=== PATIENT | male | born 1965 | race Caucasian/White ===

== ENCOUNTER 2017-08-19 05:42 | Inpatient (IN) | payer SELFPAY ==
[~2017-08-19] VITALS: Ht 177.8 cm; Wt 165.0 kg
[~2017-08-19 05:42] MED LIST: AMOX1TAB43 PO; ATOR-24 PO; LISI-725 PO; METF-384 PO; WARF5TAB7 PO; [UNRECOGNIZED DRUG - OTHER]
--- NOTE | 2017-08-19 06:09 | EMERGENCY ROOM VISIT NOTE ---
History First contact with patient: 05:44 Chief Complaint: FLU LIKE SX Stated Complaint: FLU LIKE SYMPTOMS History of Present Illness The patient is a 52 year old male who presents to the Emergency Room with complaints of flulike symptoms. The patient reports he has had fever, body aches, chills and sweats. His symptoms began one week ago that seemed to improve. He states that the symptoms returned last night. He has had a persistent cough and does report some tightness in his chest when walking outside in the cold. He reports that he feels fatigued. He denies any history of asthma or COPD. He denies any neck pain/stiffness, headache, nausea/ vomiting or diarrhea. Review of Systems A complete 10 point review of systems was reviewed with the patient with pertinent positives and negatives as per history of present illness. All else were negative. Past Medical/Surgical History Medical Problems: (1) Body Mass Index 50.0-59.9, Adult (2) Cellulitis of right lower extremity (3) Current use of intermediate teacher anticoagulation (4) DM type 2 (diabetes mellitus, type 2) (5) H/O deep venous thrombosis (6) Hx pulmonary embolism Family History Heart disease Social History Smoking Status: Never Smoker Alcohol Use: none Drug Use: none Marital Status: single Housing Status: lives with family Occupation Status: employed Current/Historical Medications Scheduled Atorvastatin (Lipitor), 40 MG PO DAILY Lisinopril (Zestril), 20 MG PO DAILY Metformin Hcl (Glucophage), 1,000 MG PO BID Warfarin Sod (Jantoven), 7.5 MG PO DAILY Physical Exam Vital Signs Date Time Temp Pulse Resp B/P (MAP) Pulse Ox O2 Delivery O2 Flow Rate FiO2 08/19/17 06:50 92 18 136/71 92 Room Air 08/19/17 05:44 37.2 102 22 134/66 96 Room Air Physical Exam VITALS: Vitals are noted on the nurse's note and reviewed by myself. Vital signs stable. GENERAL: This is a 52-year-old obese male in no acute distress. SKIN: The skin was without rashes. EARS: External auditory canals clear, tympanic membranes pearly you without erythema or effusion bilaterally. EYES: Pupils equal round and reactive to light and accommodation. MOUTH: Mucous membranes moist. Tonsils are not enlarged. Pharynx without erythema or exudate. NECK: Supple without nuchal rigidity. HEART: Regular rate and rhythm without murmurs gallops or rubs. LUNGS: Clear to auscultation bilaterally without wheezes, rales or rhonchi. No retractions or accessory muscle use. NEURO: Patient was alert and oriented to person place and time. Medical Decision & Procedures ER Provider Diagnostic Interpretation: CHEST ONE VIEW PORTABLE CLINICAL HISTORY: cough dyspnea COMPARISON STUDY: 01/15/2016 FINDINGS: Mild stable cardiomegaly. Lungs are clear. Diaphragms are smooth. IMPRESSION: Mild stable cardia megaly. Otherwise negative study. Laboratory Results 08/19/17 06:00 Red Blood Count 4.41, Mean Corpuscular Volume 87.3, Mean Corpuscular Hemoglobin 29.3, Mean Corpuscular Hemoglobin Concent 33.5, Mean Platelet Volume 9.3, Neutrophils (%) (Auto) 85.8, Lymphocytes (%) (Auto) 6.0, Monocytes (%) (Auto) 7.3, Eosinophils (%) (Auto) 0.0, Basophils (%) (Auto) 0.1, Neutrophils # (Auto) 15.38, Lymphocytes # (Auto) 1.07, Monocytes # (Auto) 1.31, Eosinophils # (Auto) 0.00, Basophils # (Auto) 0.02 08/19/17 06:00 Test 08/19/17 05:45 08/19/17 06:00 Influenza Type A Antigen Neg for Influ A (NEG) Influenza Type B Antigen Neg for Influ B (NEG) White Blood Count 17.93 K/uL (4.8-10.8) Red Blood Count 4.41 M/uL (4.7-6.1) Hemoglobin 12.9 g/dL (14.0-18.0) Hematocrit 38.5 % (42-52) Mean Corpuscular Volume 87.3 fL (80-100) Mean Corpuscular Hemoglobin 29.3 pg (25-34) Mean Corpuscular Hemoglobin Concent 33.5 g/dl (32-36) Platelet Count 159 K/uL (130-400) Mean Platelet Volume 9.3 fL (7.4-10.4) Neutrophils (%) (Auto) 85.8 % Lymphocytes (%) (Auto) 6.0 % Monocytes (%) (Auto) 7.3 % Eosinophils (%) (Auto) 0.0 % Basophils (%) (Auto) 0.1 % Neutrophils # (Auto) 15.38 K/uL (1.4-6.5) Lymphocytes # (Auto) 1.07 K/uL (1.2-3.4) Monocytes # (Auto) 1.31 K/uL (0.11-0.59) Eosinophils # (Auto) 0.00 K/uL (0-0.5) Basophils # (Auto) 0.02 K/uL (0-0.2) RDW Standard Deviation 50.2 fL (36.4-46.3) RDW Coefficient of Variation 15.7 % (11.5-14.5) Immature Granulocyte % (Auto) 0.8 % Immature Granulocyte # (Auto) 0.15 K/uL (0.00-0.02) Anion Gap 10.0 mmol/L (3-11) Est Creatinine Clear Calc Drug Dose 121.7 ml/min Estimated GFR () 88.6 Estimated GFR (Non- 76.5 BUN/Creatinine Ratio 11.5 (10-20) Calcium Level 9.2 mg/dl (8.5-10.1) Medications Administered Medications (Trade) Dose Ordered Sig/Deshawn Route Start Time Stop Time Status Last Admin Dose Admin Sodium Chloride 1,000 ml @ 999 mls/hr Q1H1M STAT IV 08/19/17 06:47 08/19/17 07:47 08/19/17 06:57 999 MLS/HR Medical Decision Differential diagnosis includes influenza, pneumonia, viral illness, dehydration , sepsis, among others. The patient is a 52-year-old male who presents today complaining of flulike symptoms. Labs revealed leukocytosis of 17,000. Influenza testing was negative. Chest x-ray does not show any obvious infiltrate consistent with a pneumonia. Patient was found to be hyponatremic at 126. He has had some generalized weakness. He was given a 1 L saline bolus and eventually the hospitalist service for further evaluation. The patient's case was reviewed with Dr. Howell, ED attending physician, who agreed with my assessment and treatment plan. Medication Reconcilliation Current Medication List: was personally reviewed by me Blood Pressure Screening Patient's blood pressure: Normal blood pressure Impression Primary Impression: Hyponatremia Additional Impression: Flu-like symptoms Departure Information Referrals Andrew Vela III, M.D. (PCP) Patient Instructions My [facility] Problem Qualifiers
[2017-08-19 06:15] LABS: BASO % 0.1 %; BASO ABS # 0.02 K/uL (0-0.2); HEMATOCRIT 38.5 % (42-52); HEMOGLOBIN 12.9 g/dL (14.0-18.0); IG# 0.15 K/uL (0.00-0.02); LYMPH ABS # 1.07 K/uL (1.2-3.4); MEAN CELL VOLUME 87.3 fL (80-100); MEAN CORPUSCULAR HEMOGLOBIN 29.3 pg (25-34); MEAN CORPUSCULAR HGB CONC 33.5 g/dl (32-36); MEAN PLATELET VOLUME 9.3 fL (7.4-10.4); MONO % 7.3 %; MONO ABS # 1.31 K/uL (0.11-0.59); NEUT % 85.8 %; NEUT ABS # 15.38 K/uL (1.4-6.5); PLATELET COUNT 159 K/uL (130-400); RED CELL DISTRIBUTION WIDTH CV 15.7 % (11.5-14.5); RED CELL DISTRIBUTION WIDTH SD 50.2 fL (36.4-46.3); WHITE BLOOD COUNT 17.93 K/uL (4.8-10.8)
[2017-08-19 06:29] LABS: INFLUENZA B ANTIGEN Neg for Influ B (NEG)
[2017-08-19 06:40] LABS: CALCIUM 9.2 mg/dl (8.5-10.1); CREATININE 1.11 mg/dl (0.60-1.40); POTASSIUM 3.6 mmol/L (3.5-5.1)
[2017-08-19] MEDS ORDERED: SODIUM CHLORIDE 0.9% 1000ML 1,000 ML IV STA (06:47)
--- NOTE | 2017-08-19 07:05 | DIAGNOSTIC IMAGING REPORT ---
CHEST ONE VIEW PORTABLE CLINICAL HISTORY: cough dyspnea COMPARISON STUDY: 01/15/2016 FINDINGS: Mild stable cardiomegaly. Lungs are clear. Diaphragms are smooth. IMPRESSION: Mild stable cardia megaly. Otherwise negative study. The above report was generated using voice recognition software. It may contain grammatical, syntax or spelling errors. Electronically signed by: Raj Thompson M.D. 08/19/2017 7:04 AM Dictated Date/Time: 08/19/2017 7:03 AM
[2017-08-19 07:45] VITALS: O2SAT 92; Ht 177.8 cm; Wt 165.0 kg
[2017-08-19] MEDS ORDERED: NITROGLYCERIN 0.4 MG SL PER TAB CHARGE SL PRN (08:30)
[2017-08-19] MEDS ORDERED: POLYETHYLENE (MIRALAX) 17 GM PACK PO PRN (08:30)
[2017-08-19] MEDS ORDERED: ACETAMINOPHEN 325 MG TAB PO PRN (08:30)
[2017-08-19] MEDS ORDERED: ALUMINUM/MAGNESIUM/SIMETH (MAALOX MAX) 30 ML UDC PO PRN (08:30)
[2017-08-19] MEDS ORDERED: ONDANSETRON INJ 2 MG/ML 2 ML VIAL IV PRN (08:30)
[2017-08-19] MEDS ORDERED: LEVALBUTEROL/IPRATROPIUM NEB INH PRN (08:45)
[2017-08-19] MEDS: LISINOPRIL 20 MG TAB PO SCH (09:00)
--- NOTE | 2017-08-19 09:10 | HISTORY & PHYSICAL EXAMINATION ---
DATE OF ADMISSION: 08/19/2017 CHIEF COMPLAINT: Chest pressure, shortness of breath and flu-like symptoms. HISTORY OF PRESENT ILLNESS: This 52-year-old male with past medical history significant for diabetes, hypertension, morbid obesity, history of DVT and pulmonary embolism, history of cellulitis of right lower extremity presents with flu-like symptoms. The patient says since last couple of days in severe cold he was getting chest pressure. He works in [employer].Yesterday in the night he was walking up hill in the night to go to his bus when he felt chest pressure and somewhat short of breath. It lasted for some time while he was in the bus and when he went home he felt dizzy, confused and lethargic when it got better he called 911 and came to the ER. He also says that he has a mild temperature at home, has some dry cough since yesterday. He was also worried about flu. Currently seems somewhat uncomfortable but hemodynamically stable. Denies any headaches, no blurred vision. Has some ringing noise in the ears. No runny nose. No sore throat, no difficulty swallowing. No skin rash. No abdominal pain. No nausea, no vomiting. Normal bowel and bladder movements. No blood in the stools. No blood in the urine. No burning sensation with micturition. Has chronic swelling of the legs. Last night when he was lying flat he got short of breath. He also says couple of days ago he felt left upper extremity was numb for some time and got resolved now. Because of his ongoing symptoms, he came to the ER. ALLERGIES: DILANTIN. PAST MEDICAL HISTORY: As mentioned above. PAST SURGICAL HISTORY: No past surgical history on file. MEDICATIONS: The patient is on metformin 1000 mg p.o. b.i.d., lisinopril 20 mg p.o. daily, Coumadin 7.5 mg p.o. daily, atorvastatin 40 mg p.o. daily, Orlistat 120 mg p.o. t.i.d. as needed with fatty meal, multivitamins 1 tablet p.o. daily. FAMILY HISTORY: Significant for father had CHF, hypertension, Parkinsonism. Mother has PR, CHF. Brother has diabetes. SOCIAL HISTORY: , lives with his girlfriend. No smoking history. No alcohol history. No drug use. REVIEW OF SYMPTOMS: As per HPI. Rest of review of symptoms negative. PHYSICAL EXAMINATION: GENERAL: The patient is morbidly obese, somewhat uncomfortable. VITAL SIGNS: Temperature 37.2, pulse 92, respiratory rate 18, blood pressure 136/71, oxygen 92% room air. HEAD, EYES, EARS, NOSE, AND THROAT: No pallor, no icterus. Pupils equal, round, and reactive to light. NECK: No JVD, no neck masses, no carotid bruits. CARDIOVASCULAR: S1, S2 heard, regular rate and rhythm, no murmur, no gallop. RESPIRATORY SYSTEM: Clear to auscultation bilaterally. No accessory muscle use. No wheezing, no crackles. ABDOMEN: Soft, bowel sounds present. No distention noted. Nontender. CENTRAL NERVOUS SYSTEM: Cranial nerves II-XII grossly intact. Nonfocal. EXTREMITIES: Lower extremity edema present. LABORATORY DATA: WBC 17.9, hemoglobin 12.9, hematocrit 38.5, platelets 159. Sodium 126, potassium 3.6, chloride 92, bicarbonate 24, BUN 13, creatinine 1.1. Serum glucose 131, calcium 9.2, troponin 10.02. Chest x-ray: No acute cardiopulmonary process. EKG: Normal sinus rhythm with rate of 93, left axis deviation. No significant change from previous EKG. ASSESSMENT AND PLAN: This is a 52-year-old male who presents with flu-like symptoms and chest pressure. 1. Flu-like symptoms. Initially flu test in the ER is negative. We also will do influenza PCR. The patient also has cough and some shortness of breath. Chest x-ray, no obvious infiltrate, but we will empirically place on Levaquin and monitor the response. 2. Chest pressure. Comes with cold and also on activity and also has numbness in left upper extremity a couple of days ago and has risk factors with diabetes, obesity. We will follow serial cardiac enzymes, echocardiogram and consult cardiology for further recommendations. 3. Morbid obesity. Needs counseling. We will do also nocturnal pulse ox study and needs outpatient sleep study. 4. History of deep venous thrombosis and pulmonary embolism on Coumadin. Will follow the PT/INR. 5. History of diabetes, on metformin which we will hold. We will place him on insulin sliding scale. Follow hemoglobin A1c levels. 6. History of hyperlipidemia. Continue statin. We will follow the lipid profile. 7. The patient also has hyponatremia. We will do urine osmolality and serum osmolality. Place on gentle fluids. Repeat the labs . 8. Deep venous thrombosis prophylaxis, on Coumadin. 9. Disposition: Admit to tele floor. Expect to discharge home and follow with his family doctor. LEVEL 1 FULL CODE. MTDD
[2017-08-19 09:19] LABS: INR 1.1 (0.9-1.1); PTT PATIENT 29.4 SECONDS (21.0-31.0)
[2017-08-19] MEDS: SODIUM CHLORIDE 0.9% 1000ML 1,000 ML IV SCH (13:16)
--- NOTE | 2017-08-19 15:15 | ECHOCARDIOGRAM REPORT ---
*NOTICE TO RECEIVING [employer] This information is strictly Confidential and protected under [place] law. [place] law prohibits you from making any further disclosure of this information unless further disclosure is expressly permitted by the written consent of the person to whom it pertains or is authorized by law. A general authorization for the release of medical or other information is not sufficient for this purpose. Hospital accepts no responsibility if the information is made available to any other person, INCLUDING THE PATIENT. Interpretation Summary * Name: MARCELO GOMEZ Study Date: 08/19/2017 02:08 PM BP: 140/67 mmHg * Patient Location: [facility] HR: 83 * : 1965 (M/d/yyyy) Gender: Male Height: 70 in * Age: 52 yrs Ethnicity: CA Weight: 260 lb * Ordering Physician: Luis Alberto Wilde * Referring Physician: Self, Referred * Performed By: Anat Browne RCS * * Reason For Study: CHEST PAIN * BSA: 2.3 m2 * -- Conclusions -- * The study was technically difficult, but adequate for the referring indication. * There is mild concentric left ventricular hypertrophy. * No regional wall motion abnormalities noted. * The LV Ejection Fraction = 60-65%. * The right ventricle is normal in size and function. * Grade I diastolic dysfunction, (abnormal relaxation pattern). * There is no significant valvular heart disease. Procedure Details * A complete two-dimensional transthoracic echocardiogram was performed (2D, M-mode, Doppler and color flow Doppler). * The study was technically difficult. * There were technical limitations due to patient'sbody habitus * A contrast injection of Definity was performed to improve assessment of LV function. * Contrast was injected into an intravenous site in the left arm. * One vial of Definity ultrasound contrast was diluted in normal saline to a total volume of 10 ml. A total of '2' ml of solution was administered during imaging. * Lot # [id number] of Definity utilized for procedure. * Expiration date 1 OCT 05. Left Ventricle * The left ventricle is normal in size. * There is mild concentric left ventricular hypertrophy. * Left ventricular systolic function is normal. * Ejection Fraction = 60-65%. * The left ventricular wall motion is normal. * No regional wall motion abnormalities noted. Right Ventricle * The right ventricle is normal in size and function. Atria * The left atrial size is normal. * Right atrial size is normal. * There is no evidence of atrial septal defect, but resolution does not allow assessment for a patent foramen ovale. Mitral Valve * The mitral valve is normal. * There is no mitral valve stenosis. * Significant mitral regurgitation is absent. Tricuspid Valve * The tricuspid valve is normal. * There is no tricuspid stenosis. * Significant tricuspid regurgitation is absent. * Doppler findings do not suggest pulmonary hypertension. Aortic Valve * Aortic stenosis is absent. * There is no significant aortic regurgitation. Pulmonic Valve * The pulmonary valve is not well seen, but the Doppler examination is normal without significant regurgitation or stenosis. Great Vessels * The aortic root and proximal ascending aorta are normal sized. Pericardium/Pleural * There is no pericardial effusion. Great Vessels * Normal inferior vena cava diameter and respiratory variation suggests normal central venous pressure. Left Ventricular Diastolic Function * Grade I diastolic dysfunction, (abnormal relaxation pattern). MMode 2D Measurements and Calculations Ao root diam 3.7 cm Ao root area 10.9 cm\S\2 LA dimension 3.5 cm LA/Ao 0.94 LVAd ap4 42.6 cm\S\2 LVLd ap4 9.0 cm EDV(MOD-sp4) 161.9 ml EDV(sp4-el) 170.7 ml LVAs ap4 24.7 cm\S\2 LVLs ap4 7.3 cm ESV(MOD-sp4) 68.0 ml ESV(sp4-el) 70.9 ml EF(MOD-sp4) 58.0 % EF(sp4-el) 58.5 % LVAd ap2 48.2 cm\S\2 LVLd ap2 9.6 cm EDV(MOD-sp2) 191.9 ml EDV(sp2-el) 205.4 ml LVAs ap2 27.5 cm\S\2 LVLs ap2 8.1 cm ESV(MOD-sp2) 76.2 ml ESV(sp2-el) 79.2 ml EF(MOD-sp2) 60.3 % EF(sp2-el) 61.5 % LVLd %diff 5.8 % EDV(MOD-bp) 184.6 ml LVLs %diff 9.7 % ESV(MOD-bp) 73.8 ml EF(MOD-bp) 60.0 % SV(MOD-sp4) 93.9 ml SI(MOD-sp4) 40.2 ml/m\S\2 SV(MOD-sp2) 115.8 ml SI(MOD-sp2) 49.6 ml/m\S\2 SV(MOD-bp) 110.8 ml SI(MOD-bp) 47.5 ml/m\S\2 SV(sp4-el) 99.8 ml SI(sp4-el) 42.8 ml/m\S\2 SV(sp2-el) 126.2 ml SI(sp2-el) 54.1 ml/m\S\2 Doppler Measurements and Calculations MV E max srinivas 95.8 cm/sec MV A max srinivas 103.0 cm/sec MV E/A 0.93 MV P1/2t max srinivas 104.4 cm/sec MV P1/2t 60.2 msec MVA(P1/2t) 3.7 cm\S\2 MV dec slope 508.3 cm/sec\S\2 MV dec time 0.21 sec Ao V2 max 151.8 cm/sec Ao max PG 9.2 mmHg Ao max PG (full) 0.93 mmHg LV V1 max PG 8.3 mmHg LV V1 max 144.0 cm/sec
[2017-08-19 15:43] VITALS: BP 143/80; PULSE 80; TEMP 37.4; O2SAT 95
[2017-08-19] MEDS ORDERED: GLUCOSE 10 TABS/TUBE PO PRN (15:45)
[2017-08-19] MEDS ORDERED: DEXTROSE 50% 50 ML SYR IV PRN (15:45)
[2017-08-19] MEDS ORDERED: LEVALBUTEROL 1.25MG/0.5ML NEB INH PRN (15:45)
[2017-08-19] MEDS ORDERED: GLUCAGON FOR INJ 1 MG VIAL SQ PRN (15:45)
[2017-08-19] MEDS ORDERED: GLUCOSE 40% GEL 15 GM TUBE PO PRN (15:45)
[2017-08-19] MEDS ORDERED: IPRATROPIUM BROMIDE NEB SOLN 0.02% 2.5 ML VIAL INH PRN (15:45)
--- NOTE | 2017-08-19 15:55 | Cardiology Consultation ---
Cardiology Consultation Date of Consultation: Aug 19, 2017 History of Present Illness Raj Pineda is a 52 year old male seen in cardiology consultation per the request of Dr Wilde for the evaluation of chest discomfort. The patient's PCP is Dr Vela. He has not follow with cardiology in the past. He states that he was in his normal state of health last evening. He was walking outside and the excessively cold temperatures. In order to catch a bus he had to walk up [facility] and as he exerted himself he noted that he felt significantly short of breath with associated chest tightness and difficulty talking. To give a long time to catch his breath. When he got on the bus, his symptoms persisted. He also notes that he is concerned about transient left arm numbness. He ultimately got home and became concerned about these symptoms. He therefore presented to the emergency room by ambulance. Patient states his chest discomfort has been resolved since his arrival. His initial troponin was negative in the emergency room. A second set has just been drawn and is pending at the time of this dictation. At present, the patient is resting comfortably on the telemetry unit. History Past Medical History: 1. Morbid obesity, weight 374 pounds, BMI 51-53 kg/m 2. Presented to [facility] in December 2015 with complaints of shortness of breath and chest tightness which time he was found to have significant bilateral pulmonary embolism on CT angiogram as well as an extensive right lower extremity DVT. Per review of his records, hypercoagulable evaluation performed at that time was negative, and it was felt that he had an unprovoked venous thromboembolic event with his only risk factor at that time being obesity. He was anticoagulated with heparin. An echocardiogram during that admission revealed hyperdynamic left ventricular systolic function, mild right ventricular chamber dilatation. He was ultimately anticoagulated with Coumadin. -Patient states however that he has been off of Coumadin for "a few months "due to difficulty with his insurance. Is noted that when he was admitted to [facility] in June 2017 his INR was subtherapeutic on admission. He is once again discharged on Coumadin and he did have an INR that was at goal and follow- up in June 2017 at [facility]. He has missed his anticoagulation clinic follow-up that had been scheduled for 07/21/17. -Per review of records, it sounds as though he had been nonadherent to Coumadin therapy dating back to August 2016, he has not kept anticoagulated clinic appointments, and therefore it appears that he had really been off Coumadin for the better part of the last calendar year. 2. History of lower extremity cellulitis Past Surgical History: No past surgical history Social History: The patient lives with his girlfriend and roommates. He is a nonsmoker and denies alcohol use. Family History: He states his mother in her 50s or early 60s. He describes her having a "rhythm problem" but he is not able to provide more information and that she was having a procedure to correct her rhythm and she did not survive this. His father at age 72 due to complications of Parkinson's disease and congestive heart failure The patient has several siblings, he has a brother and sister who have at age 60 and 59. His 2 living siblings without heart disease to the best of his knowledge Review Of Systems See above for pertinent positives & negatives. A total of 10 systems reviewed and were otherwise negative. Allergies Coded Allergies: Phenytoin (Verified Allergy, Intermediate, RASH, 08/19/17) Medications Reported Home Medications Medications Dose Route/Sig Max Daily Dose Days Date Category Lipitor (Atorvastatin Calcium) 40 Mg Tab 40 Mg PO DAILY 06/22/17 Reported Glucophage (Metformin Hcl) 1,000 Mg Tab 1,000 Mg PO BID 06/22/17 Reported Zestril (Lisinopril) 20 Mg Tab 20 Mg PO DAILY 06/22/17 Reported Jantoven (Warfarin Sodium) 5 Mg Tab 7.5 Mg PO DAILY 06/22/17 Reported Physical Exam Vital Signs (Last 8hrs): Last 8 Hrs Date Time Temp Pulse Resp B/P (MAP) Pulse Ox O2 Delivery O2 Flow Rate FiO2 08/19/17 13:58 79 17 140/67 95 08/19/17 13:17 79 17 140/67 95 Room Air 08/19/17 12:16 84 20 144/69 93 Room Air 08/19/17 10:24 85 18 151/80 93 Room Air 08/19/17 08:40 86 17 140/77 95 Room Air 08/19/17 07:45 92 Room Air General Appearance: Alert and Oriented x3. NAD. Head: Normocephalic Atraumatic. Eyes: PERRLA, EOMI, conjunctiva and sclera clear Neck: Supple. No carotid bruits noted. No JVD. No HJD. Respiratory: Breath sounds clear to auscultation bilaterally. No w/r/r. Cardiovascular: Reg rate and rhythm. S1 and S2 noted. No murmurs, rubs, gallops. PMI non displace. Abdomen: Normal bowel sounds, soft nontender. no abdominal bruits. Extremities: 1+ BL LE edema, compression socks in place Neuro: No focal deficits. Psychiatric: Normal affect. Data Last Resulted 08/19/17 06:00 Red Blood Count 4.41, Mean Corpuscular Volume 87.3, Mean Corpuscular Hemoglobin 29.3, Mean Corpuscular Hemoglobin Concent 33.5, Mean Platelet Volume 9.3, Neutrophils (%) (Auto) 85.8, Lymphocytes (%) (Auto) 6.0, Monocytes (%) (Auto) 7.3, Eosinophils (%) (Auto) 0.0, Basophils (%) (Auto) 0.1, Neutrophils # (Auto) 15.38, Lymphocytes # (Auto) 1.07, Monocytes # (Auto) 1.31, Eosinophils # (Auto) 0.00, Basophils # (Auto) 0.02 Last Resulted 08/19/17 06:00 Past 24 Hours Test 08/19/17 06:00 08/19/17 14:28 08/19/17 15:03 Range/Units Prothromb Time International Ratio 1.1 0.9-1.1 Prothrombin Time 11.5 9.0-12.0 SECONDS Troponin I 0.020 0-0.045 ng/ml Creatine Kinase MB Ratio 0-3.0 Influenza screen was negative. EKG performed today 08/19/21 at 6:50 AM revealed sinus rhythm at 93 bpm with incomplete right bundle branch block and no significant ST changes Telemetry reviewed: Telemetry reveals stable sinus rhythm Assessment & Plan Echocardiogram performed today 08/19/2017 reviewed independently by the undersigned: Normal biventricular chamber size and systolic function. No left ventricular regional wall motion of the mount is noted. Mild concentric left ventricular hypertrophy. No significant valvular heart disease. Impression: 52-year-old obese male Presents with complaints of exertional chest tightness that occurred while walking in excessively cold temperatures. EKG 1 is normal as was his initial troponin. Repeat set is pending. Discussion/recommendations: After a long discussion with the patient and review of his past hospital and outpatient records. He presented in December 2015 with chest tightness and shortness of breath and was found to have extensive bilateral pulmonary emboli as well as significant right lower extremity DVT. It appears that he pleaded 6 months of anticoagulation with Coumadin before a pattern of nonadherence shows up in his record. He is certainly not taking Coumadin now has is noted by his normal INR level and by his own admission he has not been taking it for a few months. He certainly has risk factors for heart disease including his age and obesity. At this point, I think we should cycle serial cardiac enzymes. Repeat an EKG in the morning. I think he needs a workup for DVT/PE. I discussed this with Dr. Wilde who is going to pursue this evaluation. If his DVT PE workup is negative, we'll consider proceeding with a dobutamine stress echocardiogram during his hospital stay. Fortunately, his echocardiogram reveals no evidence of cardiac myopathy, and the right ventricular chamber enlargement noted at the time his pulmonary embolism in 2016 has normalized. This could've been that walking in the excessively cold temperatures was just too much for him given his underlying deconditioning and severe obesity, but I think workup for recurrent venous thromboembolic disease is necessary and if that does not yield an explanation, it would be reasonable to proceed with stress testing.
[2017-08-19] MEDS ORDERED: LEVOFLOXACIN 750 MG TAB PO SCH (16:00)
[2017-08-19 16:04] LABS: CKMB 1.9 ng/ml (0.5-3.6)
[2017-08-19] MEDS: INSULIN ASPART 100 UNITS/ML 3 ML PEN SC SCH ×2 (16:15→20:38)
[2017-08-19] MEDS: WARFARIN SOD 7.5 MG TAB PO SCH (17:05)
[2017-08-19 17:15] LABS: INFLUENZA A PCR Neg for Influ A (NEG); INFLUENZA B PCR Neg for Influ B (NEG)
[2017-08-19 17:23] LABS: CALCIUM 9.2 mg/dl (8.5-10.1); CREATININE 1.02 mg/dl (0.60-1.40); POTASSIUM 3.8 mmol/L (3.5-5.1)
[2017-08-19] MEDS ORDERED: OPTIRAY 320 IV PRN (17:30)
[2017-08-19 17:47] LABS: OSMOLALITY,URINE 219 mOms/kg (500-800)
[2017-08-19 17:48] LABS: SODIUM RANDOM URINE 24 mEq/L
--- NOTE | 2017-08-19 18:10 | DIAGNOSTIC IMAGING REPORT ---
(CHEST FOR PE) ANGIO WITH CT DOSE: 994.39 mGy.cm HISTORY: 52 years-old Male presents with acute shortness of breath and flulike symptoms. History of pulmonary emboli TECHNIQUE: Multiple CTA images of the chest were obtained after the intravenous administration of 115 ml Optiray 320. Coronal and sagittal MIPS were obtained from the axial data set and were submitted for review. A dose lowering technique was utilized adhering to the principles of ALARA. COMPARISON: CTA of the chest 01/15/2016. FINDINGS: CTA: Heart is upper limits of normal in size without pericardial effusion. Coronary arterial disease. No aortic aneurysm or dissection. Note is made of aberrant course of the right subclavian artery which courses within a retroesophageal location. The imaged great vessels appear to be patent. The pulmonary arterial tree is opacified to level of the distal lobar branches. The segmental and subsegmental branches are not well-seen secondary to contrast bolus timing and respiratory motion. Within the limitations of the study, no pulmonary emboli identified. CT CHEST: Nonspecific lateral vessels are seen within the left upper chest wall and left axillary region which appear unchanged from comparison. No new adenopathy about the chest identified. No dominant thyroid nodule identified. There is no pneumothorax, pleural effusion or focal airspace consolidation. Mild bibasilar subsegmental atelectasis. Central airways are patent. Fatty infiltration of the liver. No acute abnormality of the imaged upper abdomen. Soft tissues are unremarkable. Bones appear intact. IMPRESSION: 1. Limited evaluation of the pulmonary arterial tree as above. No pulmonary identified. 2. No lobar airspace consolidation to suggest pneumonia. 3. Aberrant course of the right subclavian artery which is seen within a retroesophageal location. 4. Hepatic steatosis. The above report was generated using voice recognition software. It may contain grammatical, syntax or spelling errors. Electronically signed by: Jamison Woodall M.D. 08/19/2017 6:09 PM Dictated Date/Time: 08/19/2017 6:01 PM
--- NOTE | 2017-08-19 18:44 | DIAGNOSTIC IMAGING REPORT ---
VENOUS DOPPLER LWR EXT BILA CLINICAL HISTORY: 52 years-old Male presenting with dvt?. TECHNIQUE: Real-time grayscale and color and spectral Doppler ultrasound imaging of the veins of the bilateral lower extremities was performed. Compression and augmentation were also utilized. COMPARISON: 01/15/2016. FINDINGS: Right: Common femoral vein: Patent. Greater saphenous vein: Patent. Deep femoral vein: Patent. Femoral vein: Patent. Popliteal vein: Patent. Calf veins: Limited visualization. Left: Common femoral vein: Patent. Greater saphenous vein: Patent. Deep femoral vein: Patent. Femoral vein: Patent. Popliteal vein: Patent. Calf veins: Limited visualization. Other: Prominent lymph nodes in the right inguinal region, likely reactive. Left popliteal cyst. IMPRESSION: No evidence of deep venous thrombosis. Electronically signed by: Javier aMtias M.D. 08/19/2017 6:43 PM Dictated Date/Time: 08/19/2017 6:39 PM
[2017-08-19] MEDS: HEPARIN 25,000 UNIT/500ML D5W 500 ML IV PRN (19:39)
[2017-08-19 19:43] VITALS: BP 132/65; PULSE 78; TEMP 37; O2SAT 95
[2017-08-19] MEDS: CEFAZOLIN IV 2,000 MG in SYRINGE 0 ML IV SCH (20:19)
[2017-08-19] MEDS: DOXYCYCLINE IV 100 MG in DEXTROSE 5% 100ML 100 ML IV SCH (20:19)
[2017-08-19 20:56] LABS: CKMB 1.8 ng/ml (0.5-3.6)
[2017-08-19 22:29] VITALS: O2SAT 96
[2017-08-19 23:39] VITALS: BP 162/80; PULSE 77; TEMP 36.8; O2SAT 97
[2017-08-20 01:39] LABS: PTT PATIENT 37.7 SECONDS (21.0-31.0)
[2017-08-20] MEDS ORDERED: HEPARIN IV BOLUS 9,000 UNIT in SYRINGE 0 ML IV ONE (02:15)
[2017-08-20] MEDS: CEFAZOLIN IV 2,000 MG in SYRINGE 0 ML IV SCH ×3 (04:06→21:47)
[2017-08-20 04:08] VITALS: BP 147/79; PULSE 79; TEMP 38.2; O2SAT 93
[2017-08-20] MEDS: HEPARIN 25,000 UNIT/500ML D5W 500 ML IV PRN (06:56)
[2017-08-20] MEDS: SODIUM CHLORIDE 0.9% 1000ML 1,000 ML IV SCH ×3 (06:57→21:46)
[2017-08-20 07:40] VITALS: BP 142/82; PULSE 82; TEMP 36.4; O2SAT 93
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
[2017-08-20] MEDS ORDERED: DOBUTamine HCL 12.5 MG/ML 20 ML VIAL ONE (08:14)
[2017-08-20] MEDS ORDERED: METOPROLOL TARTRATE 1 MG/ML VIAL ONE (08:14)
[2017-08-20] MEDS ORDERED: ATROPINE SULFATE 0.1 MG/ML 5ML SYR ONE (08:14)
[2017-08-20 08:15] LABS: BASO % 0.2 %; BASO ABS # 0.02 K/uL (0-0.2); EOS % 0.6 %; EOS ABS # 0.05 K/uL (0-0.5); HEMATOCRIT 37.4 % (42-52); HEMOGLOBIN 12.1 g/dL (14.0-18.0); IG# 0.09 K/uL (0.00-0.02); LYMPH % 21.3 %; LYMPH ABS # 1.84 K/uL (1.2-3.4); MEAN CELL VOLUME 88.2 fL (80-100); MEAN CORPUSCULAR HEMOGLOBIN 28.5 pg (25-34); MEAN CORPUSCULAR HGB CONC 32.4 g/dl (32-36); MEAN PLATELET VOLUME 9.1 fL (7.4-10.4); MONO % 13.9 %; NEUT ABS # 5.42 K/uL (1.4-6.5); PLATELET COUNT 176 K/uL (130-400); RED CELL DISTRIBUTION WIDTH CV 16.1 % (11.5-14.5); RED CELL DISTRIBUTION WIDTH SD 51.6 fL (36.4-46.3); WHITE BLOOD COUNT 8.62 K/uL (4.8-10.8)
[2017-08-20 08:27] LABS: INR 1.1 (0.9-1.1); PTT PATIENT 44.9 SECONDS (21.0-31.0)
[2017-08-20 08:37] LABS: HEMOGLOBIN A1C 7.5 % (4.5-5.6)
--- NOTE | 2017-08-20 09:02 | Cardiology Procedure Brief Nt ---
Preliminary Cardiology Note Procedure Date Aug 20, 2017. Pre-Procedure Diagnosis chest pain r/o myocardial ischemia Post-Procedure Diagnosis normal DSE Procedure(s) Performed Dobutamine stress echocardiogram Human Resources Consultant Best Aiken DO Bone Drier(s) MARNIE Edmondson Estimated Blood Loss not applicable Preliminary Findings No EKG or echocardiographic evidence of inducible ischemia, having reached a heart rate adequate for diagnostic purposes. No symptoms suggestive of angina were induced. Hypertensive BP response to pharm stress noted. Recommendations Await lipid panel. Given coronary calcification on CT and hepatic steatosis, would recommend statin therapy. Given financial concerns, would consider starting generic pravastatin. Monitor BP. If remains elevated, consider HTN therapy, perhaps generic lisinopril. Differ further treatment of cellulitis and decision regarding ongoing coumadin therapy to primary service. Specimens none Complication(s) None Disposition PCU
[2017-08-20] MEDS ORDERED: PERFLUTREN LIPID MICROSPHERE (DEFINITY) IV ONE (09:03)
[2017-08-20 09:19] LABS: CREATININE 0.99 mg/dl (0.60-1.40); POTASSIUM 3.7 mmol/L (3.5-5.1)
[2017-08-20] MEDS: INSULIN ASPART 100 UNITS/ML 3 ML PEN SC SCH ×4 (09:20→21:00)
[2017-08-20] MEDS: DOXYCYCLINE IV 100 MG in DEXTROSE 5% 100ML 100 ML IV SCH ×2 (09:29→21:47)
[2017-08-20] MEDS: LISINOPRIL 20 MG TAB PO SCH (09:29)
[2017-08-20] MEDS: ATORVASTATIN 40 MG TAB PO SCH (09:29)
[2017-08-20 12:02] VITALS: BP 158/74; PULSE 76; TEMP 36.8; O2SAT 94
[2017-08-20 15:37] VITALS: BP 134/78; PULSE 69; TEMP 37.1; O2SAT 95
[2017-08-20] MEDS: WARFARIN SOD 7.5 MG TAB PO SCH (16:09)
[2017-08-20] MEDS ORDERED: PRAVASTATIN SOD 20 MG TAB PO SCH (17:00)
[2017-08-20 17:20] VITALS: O2SAT 95
--- NOTE | 2017-08-20 18:40 | Progress Note ---
Internal Med Progress Note Date of Service: Aug 20, 2017. Provider Documentation: SUBJECTIVE: resting comfortably redness in his right leg improving afebrile 'feeling better today no chest pain or sob OBJECTIVE: Vital Signs-as noted below Exam: General-alert and oriented. Not in distress ENT-Normal hearing Neck-no neck masses supple Lungs-cta b/l no wheezing mild bibasilar crackles present Heart-S1 and S2 heard regular rate and rthym, no murmurs Abdomen-Soft bowel sounds present non tender distended Extremities- b/l lower extremity edema present more on right lower extremity. Rt lower extremity erythematous-improving Neuro-alert and awake moves extremities Lab data as noted below. ASSESSMENT & PLAN: : This is a 52-year-old male who presents with flu-like symptoms and chest pressure. 1. Flu-like symptoms.Influenza negative CT chest no Pneumonia or PE. 2. Chest pressure. Comes with cold and also on activity and also has numbness in left upper extremity a couple of days ago and has risk factors with diabetes, obesity. Serial Ce negative. s/p dobutamine stress test- negative study currently asymptomatic. 3. Right lower extremity cellulitis on iv ancef and doxycycline-improving. 4. Morbid obesity. Needs counseling. Nocturnal pulse ox study ok study and needs outpatient sleep study. 5. History of deep venous thrombosis and pulmonary embolism Was on coumadin for 6months. currently not taking because of insurance issues. 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 f/u with PCP for further discussions regarding continuation of Coumadin. 6. History of diabetes, on metformin which is on hold. On ISS. hba1c 7.5 6. History of hyperlipidemia. Continue statin. 7. The patient also has hyponatremia. We will do urine osmolality and serum osmolality. Place on gentle fluids. NA 129 today. . 8. Deep venous thrombosis prophylaxis,hep sub q. 9. Disposition: Admit to tele floor. Expect to discharge home and follow with his family doctor. LEVEL 1 FULL CODE. possible d/c in 1-2 days Vital Signs: Date Time Temp Pulse Resp B/P (MAP) Pulse Ox O2 Delivery O2 Flow Rate FiO2 08/20/17 16:00 Room Air 08/20/17 15:37 37.1 69 18 134/78 (96) 95 Room Air 08/20/17 12:02 36.8 76 20 158/74 (102) 94 Room Air 08/20/17 12:00 Room Air 08/20/17 08:00 Room Air 08/20/17 07:40 36.4 82 22 142/82 (102) 93 Room Air 08/20/17 04:08 38.2 79 20 147/79 (101) 93 Room Air 08/20/17 04:00 Room Air 08/20/17 00:00 Room Air 08/19/17 23:39 36.8 77 20 162/80 (107) 97 Room Air 08/19/17 22:29 96 Room Air 08/19/17 20:00 Room Air 08/19/17 19:43 37.0 78 19 132/65 (87) 95 Room Air Lab Results: Results Past 24 Hours Test 08/19/17 20:17 08/19/17 20:31 08/20/17 01:23 08/20/17 06:30 Range/Units Total Creatine Kinase 656 39-308 U/L Creatine Kinase MB 1.8 0.5-3.6 ng/ml Creatine Kinase MB Ratio 0.3 0-3.0 Troponin I < 0.015 0-0.045 ng/ml Bedside Glucose 118 138 70-99 mg/dl Activated Partial Thromboplast Time 37.7 21.0-31.0 SECONDS Partial Thromboplastin Ratio 1.5 Test 08/20/17 07:59 08/20/17 11:42 Range/Units White Blood Count 8.62 4.8-10.8 K/uL Red Blood Count 4.24 4.7-6.1 M/uL Hemoglobin 12.1 14.0-18.0 g/dL Hematocrit 37.4 42-52 % Mean Corpuscular Volume 88.2 80-100 fL Mean Corpuscular Hemoglobin 28.5 25-34 pg Mean Corpuscular Hemoglobin Concent 32.4 32-36 g/dl Platelet Count 176 130-400 K/uL Mean Platelet Volume 9.1 7.4-10.4 fL Neutrophils (%) (Auto) 63.0 % Lymphocytes (%) (Auto) 21.3 % Monocytes (%) (Auto) 13.9 % Eosinophils (%) (Auto) 0.6 % Basophils (%) (Auto) 0.2 % Neutrophils # (Auto) 5.42 1.4-6.5 K/uL Lymphocytes # (Auto) 1.84 1.2-3.4 K/uL Monocytes # (Auto) 1.20 0.11-0.59 K/uL Eosinophils # (Auto) 0.05 0-0.5 K/uL Basophils # (Auto) 0.02 0-0.2 K/uL RDW Standard Deviation 51.6 36.4-46.3 fL RDW Coefficient of Variation 16.1 11.5-14.5 % Immature Granulocyte % (Auto) 1.0 % Immature Granulocyte # (Auto) 0.09 0.00-0.02 K/uL Prothrombin Time 11.2 9.0-12.0 SECONDS Prothromb Time International Ratio 1.1 0.9-1.1 Activated Partial Thromboplast Time 44.9 21.0-31.0 SECONDS Partial Thromboplastin Ratio 1.7 Sodium Level 129 136-145 mmol/L Potassium Level 3.7 3.5-5.1 mmol/L Chloride Level 96 98-107 mmol/L Carbon Dioxide Level 28 21-32 mmol/L Anion Gap 5.0 3-11 mmol/L Blood Urea Nitrogen 10 7-18 mg/dl Creatinine 0.99 0.60-1.40 mg/dl Est Creatinine Clear Calc Drug Dose 137.1 ml/min Estimated GFR () 101.8 Estimated GFR (Non- 87.8 BUN/Creatinine Ratio 10.5 10-20 Random Glucose 125 70-99 mg/dl Estimated Average Glucose 169 mg/dl Hemoglobin A1c 7.5 4.5-5.6 % Calcium Level 9.0 8.5-10.1 mg/dl Magnesium Level 2.3 1.8-2.4 mg/dl Triglycerides Level 210 0-150 mg/dl Cholesterol Level 168 0-200 mg/dl HDL Cholesterol 24 mg/dl LDL Cholesterol, Calculated 102 mg/dl VLDL Cholesterol, Calculated 42 mg/dl Cholesterol/HDL Ratio 7.0 Bedside Glucose 168 70-99 mg/dl
[2017-08-20] MEDS: HEPARIN SOD 5000 UNIT/0.5 ML CARP SQ SCH (22:01)
[2017-08-20 23:07] VITALS: BP 141/87; PULSE 61; TEMP 37.2
[2017-08-21 00:18] VITALS: O2SAT 95
[2017-08-21 04:37] LABS: BASO % 0.3 %; BASO ABS # 0.02 K/uL (0-0.2); EOS % 2.3 %; EOS ABS # 0.15 K/uL (0-0.5); HEMOGLOBIN 12.5 g/dL (14.0-18.0); IG# 0.07 K/uL (0.00-0.02); MEAN CELL VOLUME 90.1 fL (80-100); MEAN CORPUSCULAR HEMOGLOBIN 28.9 pg (25-34); MEAN CORPUSCULAR HGB CONC 32.1 g/dl (32-36); MEAN PLATELET VOLUME 9.5 fL (7.4-10.4); MONO % 17.8 %; MONO ABS # 1.16 K/uL (0.11-0.59); NEUT % 55.5 %; NEUT ABS # 3.62 K/uL (1.4-6.5); PLATELET COUNT 175 K/uL (130-400); RED CELL DISTRIBUTION WIDTH CV 16.2 % (11.5-14.5); RED CELL DISTRIBUTION WIDTH SD 53.9 fL (36.4-46.3); WHITE BLOOD COUNT 6.52 K/uL (4.8-10.8)
[2017-08-21 04:57] LABS: INR 1.1 (0.9-1.1); PTT PATIENT 27.9 SECONDS (21.0-31.0)
[2017-08-21] MEDS: CEFAZOLIN IV 2,000 MG in SYRINGE 0 ML IV SCH ×3 (04:57→20:27)
[2017-08-21 05:06] LABS: CALCIUM 9.2 mg/dl (8.5-10.1); CREATININE 0.93 mg/dl (0.60-1.40); POTASSIUM 4.4 mmol/L (3.5-5.1)
[2017-08-21] MEDS: HEPARIN SOD 5000 UNIT/0.5 ML CARP SQ SCH ×3 (05:18→20:27)
[2017-08-21] MEDS: DOXYCYCLINE IV 100 MG in DEXTROSE 5% 100ML 100 ML IV SCH ×2 (07:47→20:26)
[2017-08-21] MEDS: LISINOPRIL 20 MG TAB PO SCH (07:47)
[2017-08-21] MEDS: ATORVASTATIN 40 MG TAB PO SCH (07:47)
[2017-08-21 08:16] VITALS: BP 142/85; PULSE 68; TEMP 36.9; O2SAT 93
[2017-08-21] MEDS: INSULIN ASPART 100 UNITS/ML 3 ML PEN SC SCH ×4 (10:22→20:27)
[2017-08-21] MEDS: SODIUM CHLORIDE 0.9% 1000ML 1,000 ML IV SCH (14:44)
[2017-08-21 15:34] VITALS: BP 159/87; PULSE 64; TEMP 36.7; O2SAT 99
[2017-08-21 16:08] VITALS: O2SAT 95
--- NOTE | 2017-08-21 17:55 | DOBUTAMINE ECHO ---
*NOTICE TO RECEIVING REPUBLICAN AGENCY This information is strictly Confidential and protected under [place] law. [place] law prohibits you from making any further disclosure of this information unless further disclosure is expressly permitted by the written consent of the person to whom it pertains or is authorized by law. A general authorization for the release of medical or other information is not sufficient for this purpose. Hospital accepts no responsibility if the information is made available to any other person, INCLUDING THE PATIENT. Interpretation Summary * Name: MARCELO GOMEZ Study Date: 08/20/2017 07:53 AM BP: 169/73 mmHg * Patient Location: .2T\S\S235\S\1 HR: 78 * : 1965 (M/d/yyyy) Gender: Male Height: 70 in * Age: 52 yrs Ethnicity: CA Weight: 363 lb * Ordering Physician: Carmelo Aiken * Referring Physician: Self, Referred * Performed By: Leeanna Polanco RCS * * Reason For Study: CHEST PAIN * BSA: 2.7 m2 * -- Conclusions -- * STRESS STUDY: * Normal pharmacologic stress echocardiogram. * No echocardiographic or EKG evidence of myocardial ischemia having achieved heart rate adequate for diagnostic purposes. * No symptoms suggestive of angina were reported. Procedure Details * DOBUTAMINE ECHO, CPT#23424 * A contrast injection of Definity was performed to improve assessment of LV function. * Contrast was injected into an intravenous site in the right arm. * One vial of Definity ultrasound contrast was diluted in normal saline to a total volume of 10 ml. A total of '6' ml of solution was administered during imaging. * Lot # [id number] of Definity utilized for procedure. * Expiration date . * The attending nurse who injected the contrast agent was Huma DUNLAP RN. Left Ventricle * The left ventricle is normal in size. There is mild concentric left ventricular hypertrophy. Left ventricular systolic function is normal at rest. The resting LV Ejection Fraction = 60-65%. * Resting wall motion: Normal. Stress wall motion: Appropriate increase in Left ventricular systolic function and decrease in cavity size. No stress induced segmental wall motion abnormalities. Stress Parameters * The baseline EKG revealed sinus rhythm at 78 bpm with right bundle branch block. * The stress EKG was negative for ischemia. * The stress portion of this study was personally supervised by the undersigned interpreting physician. * Rest heart rate was '78' BPM. * Rest blood pressure was '169/73' * Maximum heart rate achieved was 142 bpm. * Maximum heart rate was 84 % of maximum age-predicted heart rate. * Maximum blood pressure was '234/69' * Maximum Dobutamine infusion rate was '40' mcg/kg/min. * A total of .75 mg of intravenous Atropine was used to supplement Dobutamine for heart rate response. * Dobutamine infusion was terminated due to achieving target heart rate * A total of 5 mg of IV Metoprolol was administered to reverse Dobutamine-induced tachycardia. * The patient did not exhibit any symptoms during drug infusion.
--- NOTE | 2017-08-21 19:48 | Progress Note ---
Internal Med Progress Note Date of Service: Aug 21, 2017. Provider Documentation: SUBJECTIVE: resting comfortably redness in his right leg much improved ambulated in room ok OBJECTIVE: Vital Signs-as noted below Exam: General-alert and oriented. Not in distress ENT-Normal hearing Neck-no neck masses supple Lungs-cta b/l no wheezing mild bibasilar crackles present Heart-S1 and S2 heard regular rate and rthym, no murmurs Abdomen-Soft bowel sounds present non tender distended Extremities- b/l lower extremity edema present more on right lower extremity. Rt lower extremity erythematous-improving Neuro-alert and awake moves extremities Lab data as noted below. ASSESSMENT & PLAN: : This is a 52-year-old male who presents with flu-like symptoms and chest pressure. 1. Flu-like symptoms.Influenza negative CT chest no Pneumonia or PE. 2. Chest pressure. Comes with cold and also on activity and also has numbness in left upper extremity a couple of days ago and has risk factors with diabetes, obesity. Serial Ce negative. s/p dobutamine stress test- negative study currently asymptomatic. 3. Right lower extremity cellulitis on iv ancef and doxycycline- improving.continue same for now 4. Morbid obesity. Needs counseling. Nocturnal pulse ox study ok study and needs outpatient sleep study. 5. History of deep venous thrombosis and pulmonary embolism Was on coumadin for 6months. currently not taking because of insurance issues. 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 f/u with PCP for further discussions regarding continuation of Coumadin. 6. History of diabetes, on metformin which is on hold. On ISS. hba1c 7.5 6. History of hyperlipidemia. Continue statin. 7. The patient also has hyponatremia. We will do urine osmolality and serum osmolality. Place on gentle fluids. NA 131 today. . 8. Deep venous thrombosis prophylaxis,hep sub q. 9. Disposition: Admit to tele floor. Expect to discharge home and follow with his family doctor. LEVEL 1 FULL CODE. possible d/c in am. Vital Signs: Date Time Temp Pulse Resp B/P (MAP) Pulse Ox O2 Delivery O2 Flow Rate FiO2 08/21/17 16:08 95 Room Air 08/21/17 15:34 36.7 64 18 159/87 (111) 99 Room Air 08/21/17 08:16 36.9 68 20 142/85 (104) 93 Room Air 08/21/17 08:00 Room Air 08/21/17 00:18 95 Room Air 08/20/17 23:07 37.2 61 18 141/87 (105) Room Air Lab Results: Results Past 24 Hours Test 08/20/17 20:24 08/21/17 04:28 08/21/17 07:35 08/21/17 11:20 Range/Units Bedside Glucose 115 136 115 70-99 mg/dl White Blood Count 6.52 4.8-10.8 K/uL Red Blood Count 4.33 4.7-6.1 M/uL Hemoglobin 12.5 14.0-18.0 g/dL Hematocrit 39.0 42-52 % Mean Corpuscular Volume 90.1 80-100 fL Mean Corpuscular Hemoglobin 28.9 25-34 pg Mean Corpuscular Hemoglobin Concent 32.1 32-36 g/dl Platelet Count 175 130-400 K/uL Mean Platelet Volume 9.5 7.4-10.4 fL Neutrophils (%) (Auto) 55.5 % Lymphocytes (%) (Auto) 23.0 % Monocytes (%) (Auto) 17.8 % Eosinophils (%) (Auto) 2.3 % Basophils (%) (Auto) 0.3 % Neutrophils # (Auto) 3.62 1.4-6.5 K/uL Lymphocytes # (Auto) 1.50 1.2-3.4 K/uL Monocytes # (Auto) 1.16 0.11-0.59 K/uL Eosinophils # (Auto) 0.15 0-0.5 K/uL Basophils # (Auto) 0.02 0-0.2 K/uL RDW Standard Deviation 53.9 36.4-46.3 fL RDW Coefficient of Variation 16.2 11.5-14.5 % Immature Granulocyte % (Auto) 1.1 % Immature Granulocyte # (Auto) 0.07 0.00-0.02 K/uL Prothrombin Time 11.2 9.0-12.0 SECONDS Prothromb Time International Ratio 1.1 0.9-1.1 Activated Partial Thromboplast Time 27.9 21.0-31.0 SECONDS Partial Thromboplastin Ratio 1.1 Sodium Level 133 136-145 mmol/L Potassium Level 4.4 3.5-5.1 mmol/L Chloride Level 100 98-107 mmol/L Carbon Dioxide Level 30 21-32 mmol/L Anion Gap 3.0 3-11 mmol/L Blood Urea Nitrogen 13 7-18 mg/dl Creatinine 0.93 0.60-1.40 mg/dl Est Creatinine Clear Calc Drug Dose 145.9 ml/min Estimated GFR () 109.8 Estimated GFR (Non- 94.7 BUN/Creatinine Ratio 13.9 10-20 Random Glucose 111 70-99 mg/dl Calcium Level 9.2 8.5-10.1 mg/dl Magnesium Level 2.7 1.8-2.4 mg/dl Test 08/21/17 16:30 Range/Units Bedside Glucose 93 70-99 mg/dl
[2017-08-22 00:13] VITALS: BP 146/86; PULSE 63; TEMP 36.9; O2SAT 97
[2017-08-22] MEDS: CEFAZOLIN IV 2,000 MG in SYRINGE 0 ML IV SCH ×2 (04:22→11:41)
[2017-08-22 05:16] LABS: BASO % 0.7 %; BASO ABS # 0.05 K/uL (0-0.2); HEMOGLOBIN 12.9 g/dL (14.0-18.0); IG# 0.11 K/uL (0.00-0.02); LYMPH % 25.4 %; LYMPH ABS # 1.72 K/uL (1.2-3.4); MEAN CELL VOLUME 89.7 fL (80-100); MEAN CORPUSCULAR HEMOGLOBIN 28.9 pg (25-34); MEAN CORPUSCULAR HGB CONC 32.3 g/dl (32-36); MEAN PLATELET VOLUME 9.7 fL (7.4-10.4); MONO % 11.8 %; NEUT % 57.5 %; NEUT ABS # 3.89 K/uL (1.4-6.5); PLATELET COUNT 206 K/uL (130-400); RED CELL DISTRIBUTION WIDTH CV 16.4 % (11.5-14.5); RED CELL DISTRIBUTION WIDTH SD 53.3 fL (36.4-46.3); WHITE BLOOD COUNT 6.77 K/uL (4.8-10.8)
[2017-08-22 05:32] LABS: PTT PATIENT 25.7 SECONDS (21.0-31.0)
[2017-08-22 05:54] LABS: CALCIUM 9.4 mg/dl (8.5-10.1); CREATININE 0.79 mg/dl (0.60-1.40); POTASSIUM 4.2 mmol/L (3.5-5.1)
[2017-08-22] MEDS: HEPARIN SOD 5000 UNIT/0.5 ML CARP SQ SCH ×2 (06:07→14:16)
[2017-08-22 07:36] VITALS: BP_SYST 160; BP_SYST 184; BP_DIAS 106; BP_DIAS 117; PULSE 75; TEMP 36.7; O2SAT 97
[2017-08-22] MEDS: DOXYCYCLINE IV 100 MG in DEXTROSE 5% 100ML 100 ML IV SCH (07:40)
[2017-08-22] MEDS: SODIUM CHLORIDE 0.9% 1000ML 1,000 ML IV SCH (07:41)
[2017-08-22] MEDS: ATORVASTATIN 40 MG TAB PO SCH (07:41)
[2017-08-22] MEDS: LISINOPRIL 20 MG TAB PO SCH (07:41)
[2017-08-22] MEDS: INSULIN ASPART 100 UNITS/ML 3 ML PEN SC SCH ×3 (07:52→16:30)
[2017-08-22 10:29] VITALS: BP 161/83
[2017-08-22 15:45] VITALS: BP 160/85; PULSE 70; TEMP 36.5; O2SAT 97
[2017-08-22] MEDS ORDERED: LCTX PO (16:17)
[2017-08-22] MEDS ORDERED: DOXY100C41 PO (16:17)
[2017-08-22] MEDS ORDERED: CEPH500C2 PO (16:17)
--- NOTE | 2017-08-22 16:48 | Discharge Instructions ---
Discharge Instructions Date of Service Aug 22, 2017. Admission Reason for Admission: Flu Like Symptoms, Hyponatremia Discharge Discharge Diagnosis / Problem: cellulitis, hyponatremia Discharge Goals Goal(s): Decrease discomfort, Improve function Activity Recommendations Activity Limitations: resume your previous activity . Instructions / Follow-Up Instructions / Follow-Up FOLLOWUP WITH FAMILY DOCTOR ON Aug 1:45PM. LAB: BMP IN ONE WEEK AND FOLLOW RESULTS WITH FAMILY DOCTOR. Current Hospital Diet Patient's current hospital diet: AHA Diet (Heart Healthy), Diabetes Type 2 Diet Discharge Diet Recommended Diet: AHA Diet (Heart Healthy), Diabetes Type 2 Diet Pending Studies Studies pending at discharge: no Laboratory Results Hemoglobin A1c Test 08/20/17 07:59 Range/Units Estimated Average Glucose 169 mg/dl Hemoglobin A1c 7.5 H 4.5-5.6 % Lipid Panel Test 08/20/17 07:59 Range/Units Triglycerides Level 210 H 0-150 mg/dl Cholesterol Level 168 0-200 mg/dl HDL Cholesterol 24 mg/dl Cholesterol/HDL Ratio 7.0 LDL Cholesterol, Calculated 102 mg/dl Medical Emergencies . Who to Call and When: Medical Emergencies: If at any time you feel your situation is an emergency, please call 911 immediately. . Non-Emergent Contact Non-Emergency issues call your: Primary Care Provider . . "Provider Documentation" section prepared by Luis Alberto Wilde. . VTE Core Measure Inpt VTE Proph given/why not?: Unfractionated heparin SQ
[2017-08-22 16:52] VITALS: BP 160/85; PULSE 70; TEMP 36.5; O2SAT 97
--- NOTE | 2017-08-22 20:01 | Progress Note ---
Internal Med Progress Note Date of Service: Aug 22, 2017. Provider Documentation: SUBJECTIVE: resting comfortably redness in his right leg much improved NO FEVERS NO SOB OR CHEST PAIN OR NAUSEA OK FOR DISCHARGE OBJECTIVE: Vital Signs-as noted below Exam: General-alert and oriented. Not in distress ENT-Normal hearing Neck-no neck masses supple Lungs-cta b/l no wheezing no crackles present Heart-S1 and S2 heard regular rate and rthym, no murmurs Abdomen-Soft bowel sounds present non tender distended Extremities- b/l lower extremity edema present more on right lower extremity. Rt lower extremity erythematous-improving Neuro-alert and awake moves extremities Lab data as noted below. ASSESSMENT & PLAN: : This is a 52-year-old male who presents with flu-like symptoms and chest pressure. 1. Flu-like symptoms.Influenza negative CT chest no Pneumonia or PE. stable 2. Chest pressure. Comes with cold and also on activity and also has numbness in left upper extremity a couple of days ago and has risk factors with diabetes, obesity. Serial Ce negative. s/p dobutamine stress test- negative study currently asymptomatic. 3. Right lower extremity cellulitis on iv ancef and doxycycline- improving.continue same for now discharged on po Keflex and doxycycline f/u with pcp and wound clinic 4. Morbid obesity. Needs counseling. Nocturnal pulse ox study ok study and needs outpatient sleep study. 5. History of deep venous thrombosis and pulmonary embolism Was on coumadin for 6months. currently not taking because of insurance issues. 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 f/u with PCP for further discussions regarding continuation of Coumadin. 6. History of diabetes, on metformin which is on hold. On ISS. hba1c 7.5 6. History of hyperlipidemia. Continue statin. 7. The patient also has hyponatremia. We will do urine osmolality and serum osmolality. Place on gentle fluids. NA 135 today. . Discharged home Vital Signs: Date Time Temp Pulse Resp B/P (MAP) Pulse Ox O2 Delivery O2 Flow Rate FiO2 08/22/17 16:52 36.5 70 20 97 Room Air 08/22/17 15:45 36.5 70 20 160/85 (110) 97 Nasal Cannula 3.0 08/22/17 10:29 161/83 (109) 08/22/17 08:00 Room Air 08/22/17 07:36 36.7 75 20 160/106 (124) 97 Room Air 184/117 (139) 08/22/17 00:13 36.9 63 20 146/86 (106) 97 Room Air Lab Results: Results Past 24 Hours Test 08/21/17 20:15 08/22/17 04:46 08/22/17 07:39 08/22/17 11:20 Range/Units Bedside Glucose 105 107 147 70-99 mg/dl White Blood Count 6.77 4.8-10.8 K/uL Red Blood Count 4.46 4.7-6.1 M/uL Hemoglobin 12.9 14.0-18.0 g/dL Hematocrit 40.0 42-52 % Mean Corpuscular Volume 89.7 80-100 fL Mean Corpuscular Hemoglobin 28.9 25-34 pg Mean Corpuscular Hemoglobin Concent 32.3 32-36 g/dl Platelet Count 206 130-400 K/uL Mean Platelet Volume 9.7 7.4-10.4 fL Neutrophils (%) (Auto) 57.5 % Lymphocytes (%) (Auto) 25.4 % Monocytes (%) (Auto) 11.8 % Eosinophils (%) (Auto) 3.0 % Basophils (%) (Auto) 0.7 % Neutrophils # (Auto) 3.89 1.4-6.5 K/uL Lymphocytes # (Auto) 1.72 1.2-3.4 K/uL Monocytes # (Auto) 0.80 0.11-0.59 K/uL Eosinophils # (Auto) 0.20 0-0.5 K/uL Basophils # (Auto) 0.05 0-0.2 K/uL RDW Standard Deviation 53.3 36.4-46.3 fL RDW Coefficient of Variation 16.4 11.5-14.5 % Immature Granulocyte % (Auto) 1.6 % Immature Granulocyte # (Auto) 0.11 0.00-0.02 K/uL Prothrombin Time 11.0 9.0-12.0 SECONDS Prothromb Time International Ratio 1.0 0.9-1.1 Activated Partial Thromboplast Time 25.7 21.0-31.0 SECONDS Partial Thromboplastin Ratio 1.0 Sodium Level 135 136-145 mmol/L Potassium Level 4.2 3.5-5.1 mmol/L Chloride Level 101 98-107 mmol/L Carbon Dioxide Level 30 21-32 mmol/L Anion Gap 4.0 3-11 mmol/L Blood Urea Nitrogen 12 7-18 mg/dl Creatinine 0.79 0.60-1.40 mg/dl Est Creatinine Clear Calc Drug Dose 171.8 ml/min Estimated GFR () 120.5 Estimated GFR (Non- 104.0 BUN/Creatinine Ratio 15.0 10-20 Random Glucose 112 70-99 mg/dl Calcium Level 9.4 8.5-10.1 mg/dl Magnesium Level 2.4 1.8-2.4 mg/dl Test 08/22/17 16:28 Range/Units Bedside Glucose 104 70-99 mg/dl
--- NOTE | 2017-08-22 20:03 | Discharge Summary ---
Discharge Summary Date of Service Aug 22, 2017. Discharge Summary Admission Date: Aug 19, 2017 at 08:34 Discharge Date: Aug 22, 2017 Discharge Disposition: Home Principal Diagnosis: FLU LIKE SYMPTOMS CHEST PAIN RIGHT LOWER EXTREMITY CELLULITIS HYPONATREMIA Secondary Diagnoses/Problems: diabetes, hypertension, morbid obesity, history of DVT and pulmonary embolism, history of cellulitis Consultations: CARDIOLOGY Medication Reconciliation New Medications: Cephalexin Monohydrate (Keflex) 500 Mg Cap 500 MG PO TID for 7 Days, #21 CAP Doxycycline (Monohydrate) (Monodox) 100 Mg Cap 100 MG PO BID for 7 Days, #14 CAP Lactobacillus Acidophilus (Lactinex) Tab 2 TAB PO BID for 10 Days, #40 TAB Continued Medications: Atorvastatin (Lipitor) 40 Mg Tab 40 MG PO DAILY, TAB Lisinopril (Zestril) 20 Mg Tab 20 MG PO DAILY, TAB Metformin Hcl (Glucophage) 1,000 Mg Tab 1000 MG PO BID, TAB Warfarin Sod (Jantoven) 5 Mg Tab 7.5 MG PO DAILY, TAB Admission Information HPI (per Admitting provider): This 52-year-old male with past medical history significant for diabetes, hypertension, morbid obesity, history of DVT and pulmonary embolism, history of cellulitis of right lower extremity presents with flu-like symptoms. The patient says since last couple of days in severe cold he was getting chest pressure. 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 It lasted for some time while he was in the bus and when he went home he felt dizzy, confused and lethargic when it got better he called 911 and came to the ER. He also says that he has a mild temperature at home, has some dry cough since yesterday. He was also worried about flu. Currently seems somewhat uncomfortable but hemodynamically stable. Denies any headaches, no blurred vision. Has some ringing noise in the ears. No runny nose. No sore throat, no difficulty swallowing. No skin rash. No abdominal pain. No nausea, no vomiting. Normal bowel and bladder movements. No blood in the stools. No blood in the urine. No burning sensation with micturition. Has chronic swelling of the legs. Last night when he was lying flat he got short of breath. He also says couple of days ago he felt left upper extremity was numb for some time and got resolved now. Because of his ongoing symptoms, he came to the ER. Physical Exam (per Admitting): GENERAL: The patient is morbidly obese, somewhat uncomfortable. VITAL SIGNS: Temperature 37.2, pulse 92, respiratory rate 18, blood pressure 136/71, oxygen 92% room air. HEAD, EYES, EARS, NOSE, AND THROAT: No pallor, no icterus. Pupils equal, round, and reactive to light. NECK: No JVD, no neck masses, no carotid bruits. CARDIOVASCULAR: S1, S2 heard, regular rate and rhythm, no murmur, no gallop. RESPIRATORY SYSTEM: Clear to auscultation bilaterally. No accessory muscle use. No wheezing, no crackles. ABDOMEN: Soft, bowel sounds present. No distention noted. Nontender. CENTRAL NERVOUS SYSTEM: Cranial nerves II-XII grossly intact. Nonfocal. EXTREMITIES: Lower extremity edema present. Hospital Course : This is a 52-year-old male who presents with flu-like symptoms and chest pressure. 1. Flu-like symptoms.Influenza negative CT chest no Pneumonia or PE. stable 2. Chest pressure. Comes with cold and also on activity and also has numbness in left upper extremity a couple of days ago and has risk factors with diabetes, obesity. Serial Ce negative. s/p dobutamine stress test- negative study currently asymptomatic. 3. Right lower extremity cellulitis on iv ancef and doxycycline- improving.continue same for now discharged on po Keflex and doxycycline f/u with pcp and wound clinic 4. Morbid obesity. Needs counseling. Nocturnal pulse ox study ok study and needs outpatient sleep study. 5. History of deep venous thrombosis and pulmonary embolism Was on Coumadin for 6months. currently not taking because of insurance issues. 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 f/u with PCP for further discussions regarding continuation of Coumadin. 6. History of diabetes, on metformin which is on hold. On ISS. hba1c 7.5D/C ON HOME MEDS 6. History of hyperlipidemia. Continue statin. 7. The patient also has hyponatremia. We will do urine osmolality and serum osmolality. Place on gentle fluids. NA 135 today.F/U LABS WITH PCP . Discharged home Total time spent on discharge = 40MINUTES This includes examination of the patient, discharge planning, medication reconciliation, and communication with other providers. Discharge Instructions Discharge Instructions Date of Service Aug 22, 2017. Admission Reason for Admission: Flu Like Symptoms, Hyponatremia Discharge Discharge Diagnosis / Problem: cellulitis, hyponatremia Discharge Goals Goal(s): Decrease discomfort, Improve function Activity Recommendations Activity Limitations: resume your previous activity . Instructions / Follow-Up Instructions / Follow-Up FOLLOWUP WITH FAMILY DOCTOR ON Aug 1:45PM. LAB: BMP IN ONE WEEK AND FOLLOW RESULTS WITH FAMILY DOCTOR. Current Hospital Diet Patient's current hospital diet: AHA Diet (Heart Healthy), Diabetes Type 2 Diet Discharge Diet Recommended Diet: AHA Diet (Heart Healthy), Diabetes Type 2 Diet Pending Studies Studies pending at discharge: no Laboratory Results Hemoglobin A1c Test 08/20/17 07:59 Range/Units Estimated Average Glucose 169 mg/dl Hemoglobin A1c 7.5 H 4.5-5.6 % Lipid Panel Test 08/20/17 07:59 Range/Units Triglycerides Level 210 H 0-150 mg/dl Cholesterol Level 168 0-200 mg/dl HDL Cholesterol 24 mg/dl Cholesterol/HDL Ratio 7.0 LDL Cholesterol, Calculated 102 mg/dl Medical Emergencies . Who to Call and When: Medical Emergencies: If at any time you feel your situation is an emergency, please call 911 immediately. . Non-Emergent Contact Non-Emergency issues call your: Primary Care Provider . . "Provider Documentation" section prepared by Luis Alberto Wilde. . VTE Core Measure Inpt VTE Proph given/why not?: Unfractionated heparin SQ
== END 2017-08-22 17:54 | disposition home or self-care (01) | DRG 313 ==
LOC: EDBD 05:42 → C.EDA 05:43 → C.2T 08:34 → ENRESERV 13:53 → C.MS2W 08-20 17:03
PROVIDERS: ADMIT Internal Medicine; ATTEND Internal Medicine
DX: R07.9 Chest pain, unspecified (principal); L03.115 Cellulitis of right lower limb; E87.1 Hypo-osmolality and hyponatremia; Z82.49 Family history of ischemic heart disease and other diseases of the circulatory system; E11.9 Type 2 diabetes mellitus without complications; I10 Essential (primary) hypertension; E66.01 Morbid (severe) obesity due to excess calories; Z86.718 Personal history of other venous thrombosis and embolism; Z86.711 Personal history of pulmonary embolism; E78.5 Hyperlipidemia, unspecified

== ENCOUNTER 2021-08-19 17:34 | Inpatient (IN) ==
[2021-08-19] MEDS ORDERED: VANCOMYCIN HCL 2,750 MG in SODIUM CHLORIDE 0.9% 500 ML IV ONE (18:14)
[2021-08-19] MEDS ORDERED: PIPERACILLIN/TAZOBACTAM 4.5 GM/120 ML BAG IV ONE (18:14)
[2021-08-19] MEDS ORDERED: VANCOMYCIN CONSULT ACTIVE PRN (18:14)
[2021-08-19] MEDS ORDERED: PIPERACILL/TAZOBAC CONSULT ACTIVE PRN (18:14)
[2021-08-19 18:16] LABS: Basophils # (auto) 0.03 K/uL (0-0.2); Basophils % (auto) 0.3 %; Eosinophils # (auto) 0.03 K/uL (0-0.5); Eosinophils % (auto) 0.3 %; Hematocrit (blood only) 46.1 % (42-52); Hemoglobin 15.5 g/dL (14.0-18.0); Immature Granulocytes # (auto) 0.07 K/uL (0.00-0.02); Immature Granulocytes % (auto) 0.6 %; Lymphocytes # (auto) 2.28 K/uL (1.2-3.4); Lymphocytes % (auto) 19.9 %; Mean Corpuscular Hemoglobin 31.5 pg (25-34); Mean Corpuscular Hgb Conc 33.6 g/dL (32-36); Mean Corpuscular Volume 93.7 fL (80-100); Mean Platelet Volume 10.5 fL (7.4-10.4); Monocytes # (auto) 1.04 K/uL (0.11-0.59); Monocytes % (auto) 9.1 %; Neutrophils # (auto) 8.03 K/uL (1.4-6.5); Neutrophils % (auto) 69.8 %; Platelet Count 206 K/uL (130-400); RDW Coefficient of Variation 13.7 % (11.5-14.5); RDW Standard Deviation 46.9 fL (36.4-46.3); Red Blood Count 4.92 M/uL (4.7-6.1); White Blood Count 11.48 K/uL (4.8-10.8)
[2021-08-19] MEDS ORDERED: SODIUM CHLORIDE 0.9% 1000ML 1,000 ML IV ONE ×2 (18:16→20:32)
--- NOTE | 2021-08-19 18:21 | Emergency Department Note ---
Impression & Plan Cellulitis of right foot, Diabetes, Diabetic foot ulcer, Acute hyponatremia, SANIA (acute kidney injury) ED Provider Note NAME: MARCELO GOMEZ AGE: 56 SEX: M : 1965 ARRIVES VIA: Walk-In INFORMANT: Patient, ED PROVIDER(S): Sea Padilla DO CHIEF COMPLAINT: Foot pain HPI: The patient is a 56-year-old male who presented to emergency department for evaluation of foot pain. The patient is a diabetic. He noticed some cracking on his right middle toe that started to progress. He is had to take a week off of work because of pain and swelling. He was not seen by his family doctor for the symptoms. He has a history of infection in the past. Usually it does clear up on its own after to staying off his foot. He started noticing some darkening of the skin and swelling and this is why he came to the emergency department this evening. He denies having any fever. He does complain of significant pain. He denies having any nausea or vomiting. He said no exposure to COVID-19 as far as he knows. He said no cough. He did not come the emergency department initially because he was afraid of catching COVID-19. ROS: See above HPI for pertinent positives & negatives. A total of 10 systems reviewed and were otherwise negative. PAST MEDICAL HISTORY: See Below PAST SURGICAL HISTORY: See Below FAMILY HISTORY: See Below SOCIAL HISTORY: See Below HOME MEDICATIONS: See Below ALLERGIES: See Below VITALS: See Below PHYSICAL EXAMINATION: GENERAL: The patient is awake and alert. He is very anxious appearing. EYES: The conjunctivae are clear. The pupils are round and reactive. EARS, NOSE, MOUTH AND THROAT: The nose is without any evidence of any deformity. NECK: The neck is nontender and supple. RESPIRATORY: Normal respiratory effort is noted there is no evidence of wheezing rhonchi or rales CARDIOVASCULAR: Tachycardic rate with regular rhythm was noted. There was no definite murmur. GASTROINTESTINAL: The abdomen is soft. Abdomen is nontender. MUSCULOSKELETAL/EXTREMITIES: There is no evidence of gross deformity full range of motion is noted in the hips and shoulders. SKIN: There was significant petechia and erythema noted of the right leg. There was significant swelling. There was ulceration and bleeding noted of the right middle toe. There was a significant odor noted to this. NEUROLOGIC: Patient is awake alert and oriented x3. Gait was antalgic. MEDICAL DECISION MAKING: The patient is a 56-year-old male who presented to emergency department for an evaluation of foot ulcer. The patient was found to have significant cellulitis as well as skin breakdown over the right foot. The patient had a purpuric rash on the right leg. The patient was treated with IV fluids and IV antibiotics in emergency department. I discussed the patient's laboratory and radiographic studies with him. Because of his findings I [facility] to evaluate the patient in the em ergency department for further management and disposition. The patient was reevaluated multiple times. He did not become hypotensive. Triage Nursing notes reviewed. Prior medical records reviewed Vital Signs: reviewed and remarkable for hypertension Differential diagnosis: Cellulitis, abscess, MRSA infection, DVT, necrotizing fasciitis, dermatitis, drug eruption, allergic reaction, as well as other pathologies. ER treatment provided: See below Diagnostics interpreted by me: ECG: none Cardiac Monitoring: An order was placed for continuous cardiac monitoring. The monitor shows a rate of 80 bpm with sinus rhythm. Laboratory studies: As stated above and show below. Imaging studies: See below Consultation(s): I discussed this case with Dr. Casey who [facility] He will evaluate the patient in the emergency department. Past Med/Surg History Medical History Diabetes Hypertension Pneumonia Surgical History No significant past surgical history Family History Other Diabetes Heart disease Hypertension Seizures Social History Smoking Status: Never smoker Hx Alcohol Use: No Hx Substance Use: No Preferred Language: Ukrainian Communication Ability: Effective Visual Impairment: Limited Hearing Ability: Normal Beliefs That Will Affect Care: None marital status: Single Current Living Situation: Significant Other Current Living Situation Comment: LIVES WITH GIRLFRIEND current occupational status: employed current occupation: WORKS AT [employer], ON HIS FEET A LOT AT WORK Feels Safe at Home: Yes during the past year weight has: remained stable Allergies Allergies Allergy/AdvReac Type Severity Reaction Status Date / Time phenytoin Allergy Intermediate RASH Verified 06/10/18 08:24 Home Meds Home Medications Medication Instructions Recorded Confirmed atorvastatin 40 mg tablet (Lipitor) 40 mg PO DAILY 05/26/18 08/19/21 metformin 1,000 mg tablet 1,000 mg PO BID 05/26/18 08/19/21 Results & Data (ED) Vital Signs Vital Signs - 24 hr 08/19/21 17:40 08/19/21 18:14 08/19/21 19:55 Temperature 36.6 C Temperature Source Temporal Artery Scan Pulse Rate 97 H Pulse Rate [Apical] 88 Respiratory Rate 20 19 Respiratory Effort / Characteristics Non-Labored Spontaneous Non-Labored Respiratory Depth Normal Blood Pressure 186/112 H Blood Pressure Mean 136 Pulse Oximetry 98 95 Oxygen Delivery Method Room Air Room Air Sepsis Recent Fever Within 48 Hours No Sepsis New/Unexplained Change in Mental Status No Sepsis Action Taken by Nursing No Action Required Home Medications Current Medication List: was personally reviewed by me Laboratory Data Attestation: I reviewed the patient's lab results. Result diagrams: 08/19/21 17:51 08/19/21 17:51 Lab Results 08/19/21 08/19/21 08/19/21 Range/Units 17:51 17:51 17:51 WBC 11.48 H (4.8-10.8) K/uL RBC 4.92 (4.7-6.1) M/uL Hgb 15.5 (14.0-18.0) g/dL Hct 46.1 (42-52) % MCV 93.7 (80-100) fL MCH 31.5 (25-34) pg MCHC 33.6 (32-36) g/dL RDW Std Deviation 46.9 H (36.4-46.3) fL RDW Coeff of Scott 13.7 (11.5-14.5) % Plt Count 206 (130-400) K/uL MPV 10.5 H (7.4-10.4) fL Immature Gran % (Auto) 0.6 % Neut % (Auto) 69.8 % Lymph % (Auto) 19.9 % [place] % (Auto) 9.1 % Eos % (Auto) 0.3 % Baso % (Auto) 0.3 % Neut # (Auto) 8.03 H (1.4-6.5) K/uL Lymph # (Auto) 2.28 (1.2-3.4) K/uL [place] # (Auto) 1.04 H (0.11-0.59) K/uL Eos # (Auto) 0.03 (0-0.5) K/uL Baso # (Auto) 0.03 (0-0.2) K/uL Immature Gran # (Auto) 0.07 H (0.00-0.02) K/uL ESR (0-20) mm/hr PT 10.3 (9.0-12.0) Seconds INR 1.0 (0.9-1.1) APTT 25.4 (21.0-31.0) Seconds PTT Ratio 1.0 Sodium 130 L (136-145) mmol/L Potassium 5.1 (3.5-5.1) mmol/L Chloride 95 L (98-107) mmol/L Carbon Dioxide 27 (21-32) mmol/L Anion Gap 8.0 (3-11) BUN 19 H (7-18) mg/dl Creatinine 1.55 H (0.6-1.4) mg/dl Est Cr Clr Drug Dosing 77.4 ml/min Est GFR ( Amer) 57.6 ml/min Est GFR (Non-Af Amer) 49.7 ml/min BUN/Creatinine Ratio 12.0 (10-20) Glucose 277 H (70-99) mg/dl Osmolality (280-300) mOsm/kg Lactate (0.4-2.0) mmol/L Calcium 11.0 H (8.5-10.1) mg/dl Phosphorus (2.5-4.9) mg/dl Magnesium (1.8-2.4) mg/dl Total Bilirubin 0.4 (0.2-1) mg/dl AST 33 (15-37) U/L ALT 49 (12-78) Alkaline Phosphatase 91 (45-117) U/L Total Creatine Kinase (39-308) U/L Troponin I (0-0.045) ng/ml C-Reactive Protein (0-0.29) mg/dl Total Protein 8.1 (6.4-8.2) gm/dl Albumin 4.0 (3.4-5.0) gm/dl Globulin 4.1 H (2.5-4.0) gm/dl Albumin/Globulin Ratio 1.0 (0.9-2) Beta-Hydroxybutyric Acd (0.2-2.81) mg/dl Procalcitonin (0-0.5) ng/ml TSH (0.300-4.500) uIu/ml Specimen Hemolysis SARS-CoV-2, RNA, NAAT (NEGATIVE) 08/19/21 08/19/21 08/19/21 Range/Units 17:51 17:51 17:51 WBC (4.8-10.8) K/uL RBC (4.7-6.1) M/uL Hgb (14.0-18.0) g/dL Hct (42-52) % MCV (80-100) fL MCH (25-34) pg MCHC (32-36) g/dL RDW Std Deviation (36.4-46.3) fL RDW Coeff of Scott (11.5-14.5) % Plt Count (130-400) K/uL MPV (7.4-10.4) fL Immature Gran % (Auto) % Neut % (Auto) % Lymph % (Auto) % [place] % (Auto) % Eos % (Auto) % Baso % (Auto) % Neut # (Auto) (1.4-6.5) K/uL Lymph # (Auto) (1.2-3.4) K/uL [place] # (Auto) (0.11-0.59) K/uL Eos # (Auto) (0-0.5) K/uL Baso # (Auto) (0-0.2) K/uL Immature Gran # (Auto) (0.00-0.02) K/uL ESR 29 H (0-20) mm/hr PT (9.0-12.0) Seconds INR (0.9-1.1) APTT (21.0-31.0) Seconds PTT Ratio Sodium (136-145) mmol/L Potassium (3.5-5.1) mmol/L Chloride (98-107) mmol/L Carbon Dioxide (21-32) mmol/L Anion Gap (3-11) BUN (7-18) mg/dl Creatinine (0.6-1.4) mg/dl Est Cr Clr Drug Dosing ml/min Est GFR ( Amer) ml/min Est GFR (Non-Af Amer) ml/min BUN/Creatinine Ratio (10-20) Glucose (70-99) mg/dl Osmolality 296 (280-300) mOsm/kg Lactate (0.4-2.0) mmol/L Calcium (8.5-10.1) mg/dl Phosphorus (2.5-4.9) mg/dl Magnesium (1.8-2.4) mg/dl Total Bilirubin (0.2-1) mg/dl AST (15-37) U/L ALT (12-78) Alkaline Phosphatase (45-117) U/L Total Creatine Kinase (39-308) U/L Troponin I (0-0.045) ng/ml C-Reactive Protein (0-0.29) mg/dl Total Protein (6.4-8.2) gm/dl Albumin (3.4-5.0) gm/dl Globulin (2.5-4.0) gm/dl Albumin/Globulin Ratio (0.9-2) Beta-Hydroxybutyric Acd (0.2-2.81) mg/dl Procalcitonin 0.18 (0-0.5) ng/ml TSH (0.300-4.500) uIu/ml Specimen Hemolysis SARS-CoV-2, RNA, NAAT (NEGATIVE) 08/19/21 08/19/21 08/19/21 Range/Units 19:54 19:54 Unknown WBC (4.8-10.8) K/uL RBC (4.7-6.1) M/uL Hgb (14.0-18.0) g/dL Hct (42-52) % MCV (80-100) fL MCH (25-34) pg MCHC (32-36) g/dL RDW Std Deviation (36.4-46.3) fL RDW Coeff of Scott (11.5-14.5) % Plt Count (130-400) K/uL MPV (7.4-10.4) fL Immature Gran % (Auto) % Neut % (Auto) % Lymph % (Auto) % [place] % (Auto) % Eos % (Auto) % Baso % (Auto) % Neut # (Auto) (1.4-6.5) K/uL Lymph # (Auto) (1.2-3.4) K/uL [place] # (Auto) (0.11-0.59) K/uL Eos # (Auto) (0-0.5) K/uL Baso # (Auto) (0-0.2) K/uL Immature Gran # (Auto) (0.00-0.02) K/uL ESR (0-20) mm/hr PT (9.0-12.0) Seconds INR (0.9-1.1) APTT (21.0-31.0) Seconds PTT Ratio Sodium (136-145) mmol/L Potassium (3.5-5.1) mmol/L Chloride (98-107) mmol/L Carbon Dioxide (21-32) mmol/L Anion Gap (3-11) BUN (7-18) mg/dl Creatinine (0.6-1.4) mg/dl Est Cr Clr Drug Dosing ml/min Est GFR ( Amer) ml/min Est GFR (Non-Af Amer) ml/min BUN/Creatinine Ratio (10-20) Glucose (70-99) mg/dl Osmolality (280-300) mOsm/kg Lactate 2.3 H* (0.4-2.0) mmol/L Calcium (8.5-10.1) mg/dl Phosphorus 3.5 (2.5-4.9) mg/dl Magnesium 2.0 (1.8-2.4) mg/dl Total Bilirubin (0.2-1) mg/dl AST (15-37) U/L ALT (12-78) Alkaline Phosphatase (45-117) U/L Total Creatine Kinase 181 (39-308) U/L Troponin I < 0.015 (0-0.045) ng/ml C-Reactive Protein 0.83 H (0-0.29) mg/dl Total Protein (6.4-8.2) gm/dl Albumin (3.4-5.0) gm/dl Globulin (2.5-4.0) gm/dl Albumin/Globulin Ratio (0.9-2) Beta-Hydroxybutyric Acd 1.67 (0.2-2.81) mg/dl Procalcitonin (0-0.5) ng/ml TSH 1.420 (0.300-4.500) uIu/ml Specimen Hemolysis SARS-CoV-2, RNA, NAAT NEGATIVE (NEGATIVE) Administered Medications Sodium Chloride (Nss 1000ml) 1,000 mls @ 100 mls/hr IV .Q10H ONE Stop: 08/20/21 06:31 Last Admin: 08/19/21 21:04 Dose: 100 mls/hr Documented by: [id number] Discontinued Medications Amlodipine Besylate (Amlodipine Besylate 5 Mg Tab) 2.5 mg PO NOW ONE Stop: 08/19/21 20:34 Last Admin: 08/19/21 21:04 Dose: 2.5 mg Documented by: [id number] Piperacillin Sod/Tazobactam Sod (Zosyn) 4.5 gm in 120 mls @ 240 mls/hr IV NOW ONE Stop: 08/19/21 18:43 Last Infusion: 08/19/21 20:52 Dose: 0 mls/hr Documented by: [id number] Admin: 08/19/21 19:53 Dose: 240 mls/hr Documented by: [id number] Vancomycin HCl 2,750 mg/ (Sodium Chloride) 555 mls @ 200 mls/hr IV NOW ONE Stop: 08/19/21 21:00 Last Admin: 08/19/21 21:04 Dose: 200 mls/hr Documented by: [id number] Sodium Chloride (Nss 1000ml) 1,000 mls @ 999 mls/hr IV .Q1H1M ONE Stop: 08/19/21 19:16 Last Infusion: 08/19/21 19:53 Dose: 0 mls/hr Documented by: [id number] Admin: 08/19/21 18:55 Dose: 999 mls/hr Documented by: [id number] Imaging Data Radiologist's Impression: Chest X-Ray 08/19/21 18:14 XR chest 1V portable HISTORY: SEPSIS COMPARISON: Chest 08/19/2017. FINDINGS: Cardiac silhouette remains mildly enlarged. The lungs are clear. No pleural effusions. No pneumothorax. No evidence for pulmonary edema. IMPRESSION: Mild cardiomegaly, unchanged. No acute process within the chest. ACT 112: Negative or not required by law. Electronically signed by: Venkata Solorio M.D. 08/19/2021 7:30 PM Foot X-Ray 08/19/21 18:14 XR foot RT min 3V routine CLINICAL HISTORY: Right foot infection. Swelling. COMPARISON STUDY: Right foot 02/16/2018. FINDINGS: Mild soft tissue swelling within the right foot. No fracture or dislocation. Mild degenerative changes throughout the right foot. Tiny plantar heel spur. There is a pes planus deformity. Mild vascular calcifications are noted. No soft tissue gas. No radiopaque foreign bodies. No erosive changes. No destructive changes to suggest an osteomyelitis. IMPRESSION: Soft tissue swelling within the right foot, unchanged. No underlying bony destruction to suggest an osteomyelitis. ACT 112: Negative or not required by law. Electronically signed by: Venkata Solorio M.D. 08/19/2021 7:25 PM Discharge Plan Visit Data Chief Complaint: Infection, Wound Stated Complaint: DIABETIC, OPEN WOUND ON R FOOT, BLEEDING ED Provider: Sea Padilla Discharge Problem: Cellulitis of right foot, Diabetes, Diabetic foot ulcer, Acute hyponatremia, SANIA (acute kidney injury) Patient Disposition: Being Evaluated by Hospitalist Forms Stand Alone Forms: My [facility] Prescriptions Prescriptions: No Action atorvastatin [Lipitor] 40 mg Tablet 40 mg PO DAILY RF: 0 metformin 1,000 mg Tablet 1,000 mg PO BID RF: 0 Referrals Referrals: Andrew Vela MD [Physician] -
[2021-08-19 18:42] LABS: Bilirubin,Total 0.4 mg/dl (0.2-1); Creatinine Clr Calc Pharmacy 77.4 ml/min; Est GFR (African American) 57.6 ml/min; Est GFR (Non-African American) 49.7 ml/min; Globulin 4.1 gm/dl (2.5-4.0); Potassium 5.1 mmol/L (3.5-5.1); Total Protein 8.1 gm/dl (6.4-8.2)
[2021-08-19 19:08] LABS: Partial Thromboplastin Time 25.4 Seconds (21.0-31.0); Prothrombin Time 10.3 Seconds (9.0-12.0)
--- NOTE | 2021-08-19 19:26 | XRay Report ---
XR foot RT min 3V routine CLINICAL HISTORY: Right foot infection. Swelling. COMPARISON STUDY: Right foot 02/16/2018. FINDINGS: Mild soft tissue swelling within the right foot. No fracture or dislocation. Mild degenerat saturnino changes throughout the right foot. Tiny plantar heel spur. There is a pes planus deformity. Mild vascular calcifications are noted. No soft tissue gas. No radiopaque foreign bodies. No erosive buckley es. No destructive changes to suggest an osteomyelitis. IMPRESSION: Soft tissue swelling within the right foot, unchanged. No underlying bony destruction to suggest an osteomyelitis. ACT 112: Negative or not required by law. Electronically signed by: Venkata Solorio M.D. 08/19/2021 7:25 PM
--- NOTE | 2021-08-19 19:31 | XRay Report ---
XR chest 1V portable HISTORY: SEPSIS COMPARISON: Chest 08/19/2017. FINDINGS: Cardiac silhouette remains mildly enlarged. The lungs are clear. No pleural effusions. No p neumothorax. No evidence for pulmonary edema. IMPRESSION: Mild cardiomegaly, unchanged. No acute process within the chest. ACT 112: Negative or not required by law. Electronically signed by: Venkata Solorio M.D. 08/19/2021 7:30 PM
[2021-08-19] MEDS ORDERED: amLODIPine BESYLATE 5 MG TAB PO ONE (20:33)
[2021-08-19 20:45] LABS: C Reactive Protein 0.83 mg/dl (0-0.29); Troponin I < 0.015 ng/ml (0-0.045)
[2021-08-19] MEDS ORDERED: INSULIN GLARGINE SOLOSTAR 100 UNITS/ML 3 ML PEN SC STA (20:53)
[2021-08-19 20:56] LABS: Beta-Hydroxybutyrate 1.67 mg/dl (0.2-2.81)
[2021-08-19 21:04] LABS: Creatine Kinase 181 U/L (39-308); Phosphorus 3.5 mg/dl (2.5-4.9)
--- NOTE | 2021-08-19 21:41 | History & Physical Report ---
Date of Service August 19, 2021 Assessment & Plan (1) Asymptomatic hypertensive urgency: Plan: Secondary to medication noncompliance RLE cellulitis secondary to infected diabetic foot wound No sepsis for now Rule out osteomyelitis Rule out DVT, history PE DVT status post anticoagulation ARF, possible new baseline DM2, previously on oral medications, noncompliant the last few years, last hemoglobin A1c of 9 from 2018 Medical telemetry Initiate Amlodipine CS, Daptomycin, Cefepime Offload RLE MRI right foot rule out osteomyelitis Orthopedics consult Re: Infected right foot wound RLE Doppler showed no DVT Monitor creatinine response to IVF, renal ultrasound if without improvement Basal insulin, ISS BG goal 1 10-1 40, carb count coverage, update hemoglobin A1c DVT prophylaxis. Heparin subcu Full code Text document was generated using [employer] voice recognition software. It may contain grammatical or spelling errors. Kindly contact undersigned for clarification of any documentation item in question. History of Present Illness Chief Complaint: Worsening right foot wound, right leg swelling Primary Care Provider: Dr. Vela History obtained from patient and records. Medical history significant for hypertension, hyperlipidemia, DM2 on oral meds, history of PE DVT status post anticoagulation, medication noncompliance. Last confinement 2017 for flulike symptoms and RLE cellulitis. Patient stopped taking his medications and has not seen his [facility] PCP the last few years secondary to financial constraints. Patient taking natural products and exercising a lot to lose a lot of weight. 3 weeks ago patient noted a wound on the right foot. No recollection of trauma. Wound worsening despite rest at home. No fever, no chills. Patient noted extension of right foot wound to the leg with some bruising. Patient denies chest pain, S OB, headache symptoms. Patient received vancomycin and Zosyn at the ER. Medical History as above Surgical History : None Family History : DM, alcoholism, heart disease, parkinsonism Personal/Social history : Non-smoker, no EtOH intake, fast food restaurant employee Allergies Allergy/AdvReac Type Severity Reaction Status Date / Time phenytoin Allergy Intermediate RASH Verified 06/10/18 08:24 Home Medications Medication Instructions Recorded Confirmed Type atorvastatin 40 mg tablet (Lipitor) 40 mg PO DAILY 05/26/18 08/19/21 History metformin 1,000 mg tablet 1,000 mg PO BID 05/26/18 08/19/21 History Past Med/Surg History Medical History Diabetes Hypertension Pneumonia Surgical History No significant past surgical history Family History Other Diabetes Heart disease Hypertension Seizures Social History Smoking Status: Never smoker Hx Alcohol Use: No Hx Substance Use: No Preferred Language: Armenian Communication Ability: Effective Visual Impairment: Limited Hearing Ability: Normal [employer]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 Beliefs That Will Affect Care: None marital status: Single Current Living Situation: Significant Other Current Living Situation Comment: LIVES WITH GIRLFRIEND current occupational status: employed current occupation: WORKS AT [employer], ON HIS FEET A LOT AT WORK Other Information That Helps Us Care for You: No Feels Safe at Home: Yes during the past year weight has: remained stable Assistive Devices: None Review of Systems Review of Systems: As per HPI, all 10 systems reviewed, all other ROS negative Physical Exam Physical Exam: GENERAL: Comfortable, anxious, morbidly obese, no respiratory distress SKIN: Normal color, warm HEENT: Bespectacled, partial alopecia, Leigh palpebral conjunctivae, no ptosis, dry buccal mucosa NECK : Supple, short neck, no tenderness CHEST : CTA, no tenderness HEART : RRR, no obvious murmurs ABDOMEN: Some distention, nontender EXTREMITIES : violaceous necrotic ulcerated wound right foot dorsum, RLE swelling with tenderness with overlying petechial lesions NEUROLOGIC : Coherent, no facial asymmetry, no other gross focality Results & Data Results & Data ([facility]) Vital Signs (Past 12 Hours) Vital Signs Temp Pulse Pulse Resp BP Pulse Ox 08/19/21 21:21 71 22 98 08/19/21 19:55 88 19 95 08/19/21 17:40 36.6 C 97 H 20 186/112 H 98 Laboratory Results Laboratory Results WBC 11.48 K/uL (4.8-10.8) H 08/19/21 17:51 RBC 4.92 M/uL (4.7-6.1) 08/19/21 17:51 Hgb 15.5 g/dL (14.0-18.0) 08/19/21 17:51 Hct 46.1 % (42-52) 08/19/21 17:51 MCV 93.7 fL (80-100) 08/19/21 17:51 MCH 31.5 pg (25-34) 08/19/21 17:51 MCHC 33.6 g/dL (32-36) 08/19/21 17:51 RDW Std Deviation 46.9 fL (36.4-46.3) H 08/19/21 17:51 RDW Coeff of Scott 13.7 % (11.5-14.5) 08/19/21 17:51 Plt Count 206 K/uL (130-400) 08/19/21 17:51 MPV 10.5 fL (7.4-10.4) H 08/19/21 17:51 Immature Gran % (Auto) 0.6 % 08/19/21 17:51 Neut % (Auto) 69.8 % 08/19/21 17:51 Lymph % (Auto) 19.9 % 08/19/21 17:51 [place] % (Auto) 9.1 % 08/19/21 17:51 Eos % (Auto) 0.3 % 08/19/21 17:51 Baso % (Auto) 0.3 % 08/19/21 17:51 Neut # (Auto) 8.03 K/uL (1.4-6.5) H 08/19/21 17:51 Lymph # (Auto) 2.28 K/uL (1.2-3.4) 08/19/21 17:51 [place] # (Auto) 1.04 K/uL (0.11-0.59) H 08/19/21 17:51 Eos # (Auto) 0.03 K/uL (0-0.5) 08/19/21 17:51 Baso # (Auto) 0.03 K/uL (0-0.2) 08/19/21 17:51 Immature Gran # (Auto) 0.07 K/uL (0.00-0.02) H 08/19/21 17:51 ESR 29 mm/hr (0-20) H 08/19/21 17:51 PT 10.3 Seconds (9.0-12.0) 08/19/21 17:51 INR 1.0 (0.9-1.1) 08/19/21 17:51 APTT 25.4 Seconds (21.0-31.0) 08/19/21 17:51 PTT Ratio 1.0 08/19/21 17:51 Sodium 130 mmol/L (136-145) L 08/19/21 17:51 Potassium 5.1 mmol/L (3.5-5.1) 08/19/21 17:51 Chloride 95 mmol/L (98-107) L 08/19/21 17:51 Carbon Dioxide 27 mmol/L (21-32) 08/19/21 17:51 Anion Gap 8.0 (3-11) 08/19/21 17:51 BUN 19 mg/dl (7-18) H 08/19/21 17:51 Creatinine 1.55 mg/dl (0.6-1.4) H 08/19/21 17:51 Est Cr Clr Drug Dosing 77.4 ml/min 08/19/21 17:51 Est GFR ( Amer) 57.6 ml/min 08/19/21 17:51 Est GFR (Non-Af Amer) 49.7 ml/min 08/19/21 17:51 BUN/Creatinine Ratio 12.0 (10-20) 08/19/21 17:51 Glucose 277 mg/dl (70-99) H 08/19/21 17:51 Osmolality 296 mOsm/kg (280-300) 08/19/21 17:51 Lactate 2.3 mmol/L (0.4-2.0) H* 08/19/21 19:54 Calcium 11.0 mg/dl (8.5-10.1) H 08/19/21 17:51 Phosphorus 3.5 mg/dl (2.5-4.9) 08/19/21 19:54 Magnesium 2.0 mg/dl (1.8-2.4) 08/19/21 19:54 Total Bilirubin 0.4 mg/dl (0.2-1) 08/19/21 17:51 AST 33 U/L (15-37) 08/19/21 17:51 ALT 49 (12-78) 08/19/21 17:51 Alkaline Phosphatase 91 U/L (45-117) 08/19/21 17:51 Total Creatine Kinase 181 U/L (39-308) 08/19/21 19:54 Troponin I < 0.015 ng/ml (0-0.045) 08/19/21 19:54 C-Reactive Protein 0.83 mg/dl (0-0.29) H 08/19/21 19:54 Total Protein 8.1 gm/dl (6.4-8.2) 08/19/21 17:51 Albumin 4.0 gm/dl (3.4-5.0) 08/19/21 17:51 Globulin 4.1 gm/dl (2.5-4.0) H 08/19/21 17:51 Albumin/Globulin Ratio 1.0 (0.9-2) 08/19/21 17:51 Beta-Hydroxybutyric Acd 1.67 mg/dl (0.2-2.81) 08/19/21 19:54 Procalcitonin 0.18 ng/ml (0-0.5) 08/19/21 17:51 TSH 1.420 uIu/ml (0.300-4.500) 08/19/21 19:54 Specimen Hemolysis 08/19/21 17:51 SARS-CoV-2, RNA, NAAT NEGATIVE (NEGATIVE) 08/19/21 Unknown Impressions Chest X-Ray 08/19/21 18:14 XR chest 1V portable HISTORY: SEPSIS COMPARISON: Chest 08/19/2017. FINDINGS: Cardiac silhouette remains mildly enlarged. The lungs are clear. No pleural effusions. No pneumothorax. No evidence for pulmonary edema. IMPRESSION: Mild cardiomegaly, unchanged. No acute process within the chest. ACT 112: Negative or not required by law. Electronically signed by: Venkata Solorio M.D. 08/19/2021 7:30 PM Foot X-Ray 08/19/21 18:14 XR foot RT min 3V routine CLINICAL HISTORY: Right foot infection. Swelling. COMPARISON STUDY: Right foot 02/16/2018. FINDINGS: Mild soft tissue swelling within the right foot. No fracture or dislocation. Mild degenerative changes throughout the right foot. Tiny plantar heel spur. There is a pes planus deformity. Mild vascular calcifications are noted. No soft tissue gas. No radiopaque foreign bodies. No erosive changes. No destructive changes to suggest an osteomyelitis. IMPRESSION: Soft tissue swelling within the right foot, unchanged. No underlying bony destruction to suggest an osteomyelitis. ACT 112: Negative or not required by law. Electronically signed by: Venkata Solorio M.D. 08/19/2021 7:[address] right foot: Evidence for cellulitis along the dorsal aspect of the distal foot. No definite CT evidence for osteomyelitis. However, MRI would be the study of choice to evaluate for early osteomyelitis. CT right leg: No acute osseous pathology. Diffuse subcutaneous edema characteristic of cellulitis. No increased attenuation is present to suggest hemorrhage. EKG as per my interpretation: Rate 80, LAD, LAFB, incomplete RBBB, T wave abnormality septal leads
[2021-08-19] MEDS ORDERED: GLUCOSE 10 TABS/TUBE PO PRN (21:50)
[2021-08-19] MEDS ORDERED: GLUCOSE 40% GEL 15 GM TUBE PO PRN (21:50)
[2021-08-19] MEDS ORDERED: GLUCAGON FOR INJ 1 MG VIAL SQ PRN (21:50)
[2021-08-19] MEDS ORDERED: DEXTROSE 50% 50 ML SYRINGE IV PRN (21:50)
[2021-08-19] MEDS ORDERED: CARBOHYDRATES FOR HYPOGLYCEMIA PO PRN (21:50)
[2021-08-19 22:00] LABS: Appearance Urine Clear (Clear); Bilirubin Urine Negative (Negative); Blood Urine Negative (Negative); Color Urine Yellow; Glucose Urine UA 2+ (Negative); Ketones Urine Negative (Negative); Leukocyte Esterase Urine Negative (Negative); Nitrite Urine Negative (Negative); Protein Urine Negative (Negative); Specific Gravity Urine 1.013 (1.000-1.030); Urobilinogen Urine Negative (Negative)
--- NOTE | 2021-08-19 23:01 | CT Scan Report ---
CT foot RT wo con CLINICAL HISTORY: Diabetic with foot discolored/blackish. Open wound in the distal metatarsal area. P ain and swelling. COMPARISON STUDY: Standard radiographs from 08/19/2021 CT DOSE: 482.56 mGy.cm TECHNIQUE: Standard CT of the is performed without IV contrast. Multiplanar reconstruction is perform ed. A dose lowering technique was utilized adhering to the principles of ALARA. FINDINGS: Bones: There is no definite cortical destruction involving the distal metatarsals or bases of the pro ximal phalanges. There is no evidence for an acute fracture or dislocation. There are no lytic or george stic lesions. Joints: The joint spaces are maintained. The bones are in anatomic alignment. Soft tissues: There is soft tissue swelling along the dorsum of the foot with infiltration of the aragon bcutaneous fat. The findings are characteristic of cellulitis. There are no focal fluid collections. IMPRESSION: Evidence for cellulitis along the dorsal aspect of the distal foot. No definite CT eviden ce for osteomyelitis. However, MRI would be the study of choice to evaluate for early osteomyelitis ACT 112: Negative or not required by law. Electronically signed by: Grover Zavala M.D. 08/19/2021 11:00 PM
--- NOTE | 2021-08-19 23:07 | CT Scan Report ---
CT tib/fib RT wo con CLINICAL HISTORY: Diabetic with leg swelling. Discoloration. Evaluate for possible bleeding. COMPARISON STUDY: No previous studies for comparison. CT DOSE: TECHNIQUE: Standard CT of the right lower leg is performed without IV contrast. Multiplanar reconstru ction is performed. A dose lowering technique was utilized adhering to the principles of ALARA. FINDINGS: Bones: There is no CT evidence for cortical destruction. There is no evidence for an acute fracture o r dislocation. There are no lytic or blastic lesions. Joints: The joint spaces are maintained. The bones are in anatomic alignment. Soft tissues: There is homogeneous attenuation demonstrated within the muscles of the calf. There is evidence for diffuse subcutaneous edema particularly medially and posteriorly. Extensive varicositie s are present. There are no focal fluid collections. There is no increased attenuation to suggest hem orrhage. IMPRESSION: No acute osseous pathology. Diffuse subcutaneous edema characteristic of cellulitis. No i ncreased attenuation is present to suggest hemorrhage. ACT 112: Negative or not required by law. Electronically signed by: Grover Zavala M.D. 08/19/2021 11:05 PM
--- NOTE | 2021-08-19 23:08 | Ultrasound Report ---
US venous doppler LE RT CLINICAL HISTORY: Right lower extremity swelling COMPARISON: None available at the time of this dictation. TECHNIQUE: Right lower extremity real-time compression venous ultrasound with Color Doppler imaging. Utilizing real-time ultrasonic imaging multiple real time high-resolution ultrasonic images with comp ression and noncompression maneuvers of the deep venous system in addition to color doppler imaging w ere performed from the common femoral vein through the proximal calf veins. FINDINGS: Currently there is normal compressibility of the deep venous system from the common femoral vein thro ugh the proximal calf veins. No current evidence of acute thrombosis is identified. Diffuse subcutane ous edema is present. Impression: No evidence of deep venous thrombus. ACT 112: Negative or not required by law. Electronically signed by: Grover Zavala M.D. 08/19/2021 11:07 PM
[2021-08-19] MEDS: INSULIN ASPART PER UNIT SC SCH (23:20)
[2021-08-19] MEDS ORDERED: ACETAMINOPHEN 325 MG TAB PO PRN (23:38)
[2021-08-19] MEDS ORDERED: PROMETHAZINE HCL 12.5 MG in SODIUM CHLORIDE 0.9% 50 ML IV PRN (23:38)
[2021-08-19] MEDS ORDERED: LORazepam 0.5 MG/1 ML VIAL IV PRN (23:38)
[2021-08-19] MEDS ORDERED: traMADol HCL 50 MG TABLET PO PRN (23:38)
[2021-08-19] MEDS ORDERED: HYDROmorphone INJ 0.5 MG/0.5 ML SYR IV PRN (23:38)
[2021-08-20] MEDS ORDERED: amLODIPine BESYLATE 5 MG TAB PO ONE (00:50)
[2021-08-20] MEDS ORDERED: GADOBUTROL 65ML VIAL IV ONE (01:13)
[2021-08-20] MEDS ORDERED: CEFEPIME 2,000 MG in SYRINGE 0 ML IV SCH (02:00)
[2021-08-20] MEDS: DAPTOmycin 600 MG in SYRINGE 0 ML IV SCH (02:33)
[2021-08-20] MEDS ORDERED: oxyCODONE HCL IR 5 MG TAB (IMMEDIATE RELEASE) PO PRN (04:59)
[2021-08-20 05:35] LABS: Basophils # (auto) 0.03 K/uL (0-0.2); Basophils % (auto) 0.4 %; Eosinophils # (auto) 0.14 K/uL (0-0.5); Eosinophils % (auto) 2.1 %; Hematocrit (blood only) 41.5 % (42-52); Hemoglobin 13.4 g/dL (14.0-18.0); Immature Granulocytes # (auto) 0.04 K/uL (0.00-0.02); Immature Granulocytes % (auto) 0.6 %; Lymphocytes # (auto) 2.07 K/uL (1.2-3.4); Lymphocytes % (auto) 30.7 %; Mean Corpuscular Hemoglobin 30.2 pg (25-34); Mean Corpuscular Hgb Conc 32.3 g/dL (32-36); Mean Corpuscular Volume 93.5 fL (80-100); Mean Platelet Volume 10.3 fL (7.4-10.4); Monocytes % (auto) 10.4 %; Neutrophils # (auto) 3.76 K/uL (1.4-6.5); Neutrophils % (auto) 55.8 %; Platelet Count 165 K/uL (130-400); RDW Standard Deviation 47.9 fL (36.4-46.3); Red Blood Count 4.44 M/uL (4.7-6.1); White Blood Count 6.74 K/uL (4.8-10.8)
[2021-08-20] MEDS ORDERED: FLUARIX QUADRIVALENT 0.5 ML SYR IM ONE (05:40)
[2021-08-20] MEDS: HEPARIN SOD 5,000 UNIT/0.5 ML VIAL SQ SCH ×2 (06:02→12:08)
[2021-08-20 06:09] LABS: BUN Creatinine Ratio 13.3 (10-20); Calcium 9.4 mg/dl (8.5-10.1); Creatinine Clr Calc Pharmacy 130.5 ml/min; Est GFR (African American) 108.1 ml/min; Est GFR (Non-African American) 93.3 ml/min; Potassium 4.2 mmol/L (3.5-5.1)
[2021-08-20] MEDS ORDERED: INSULIN GLARGINE SOLOSTAR 100 UNITS/ML 3 ML PEN SC STA (06:26)
[2021-08-20 07:28] LABS: Estimated Average Glucose 272 mg/dl; Hemoglobin A1C 11.1 % (4.5-5.6)
--- NOTE | 2021-08-20 07:57 | Magnetic Resonance Report ---
MR foot RT wo/w con CLINICAL HISTORY: R foot swelling ro osteomyelitis [right foot between the first and second toes. TECHNIQUE: Multiplanar multisequence MR images of the right foot were obtained. Comparison: None available at the time of this dictation. FINDINGS: Bones: No evidence of abnormal enhancement or bony edema to suggest osteomyelitis. Tendons: Unremarkable Soft tissue: There is diffuse soft tissue edema and enhancement in the forefoot. No drainable fluid c ollection is seen. IMPRESSION: Soft tissue swelling without drainable fluid collection or evidence of underlying osteomyelitis. ACT 112: Negative or not required by law. Electronically signed by: Sj Yarbrough M.D. 08/20/2021 7:55 AM
[2021-08-20] MEDS: INSULIN ASPART PER UNIT SC SCH ×4 (08:26→20:48)
[2021-08-20] MEDS ORDERED: ENOXAPARIN INJ 40 MG/0.4 ML SYR SQ SCH (09:00)
--- NOTE | 2021-08-20 11:47 | Electrocardiogram Report ---
Test Reason : Blood Pressure : / mmHG Vent. Rate : 079 BPM Atrial Rate : 079 BPM P-R Int : 198 ms QRS Dur : 088 ms QT Int : 370 ms P-R-T Axes : 034 -38 047 degrees QTc Int : 424 ms Normal sinus rhythm Left axis deviation Nonspecific T wave abnormality Abnormal ECG When compared with ECG of 20-AUG-2017 06:26, Nonspecific T wave abnormality now evident in Anterior leads Confirmed by Sea [place]aton ([id number]) on 08/20/2021 11:46:44 AM Referred By: REFERRED SELF Confirmed By:Sea Heaton
[2021-08-20] MEDS: CEFEPIME 2,000 MG in SYRINGE 0 ML IV SCH ×2 (12:08→20:51)
[2021-08-20] MEDS ORDERED: PHARMACY GLYCEMIC MGMT CONSULT PRN (14:00)
--- NOTE | 2021-08-20 14:03 | Orthopedic Consultation ---
Date of Consultation August 20, 2021 Assessment & Plan (1) Diabetic foot ulcer: Right second toe diabetic ulcer. CT scanning and MRI scan both showing diffuse subcutaneous edema but no osteomyelitis or drainable abscess is noted. Sed rate 29 and CRP 0.83 on admission. White count was elevated on admission but is now down to 6. One blood culture was showing gram-positive cocci in chains. 3 other blood cultures pending with no growth. I will consult with Dr. Reyes about this wound for question of need of debridement versus regular wound care. Aquacel Ag was placed on the ulceration and wrapped with 2 x 2 gauze and Arnol wrap. Consider weightbearing on heel for now. Consider wound care consult. Addendum: Discussed case with Dr. Reyes. No debridement needed at this time. Consult Wound Care Nurse for regular wound care to the right foot. Follow up with Dr. Reyes in 2 weeks. History of Present Illness Reason for Consultation: Right second toe wound/cellulitis Attending Physician: Brian Koroma MD History of Present Illness Patient is a 56-year-old white male with past medicalhistory significant for hypertension, hyperlipidemia, DM2 on oral meds, history of PE DVT status post anticoagulation, medication noncompliance. Some of his medical noncompliance apparently was due to financial constraint. The patient states that he had developed a wound on his right second toe. This was approximately 2 to 3 weeks ago. He has been since taking care of this wound since that time. He states that this is happened other times with his feet and that he has been successful at taking care of his wounds. No obvious trauma noted at the time he discovered the wound. As time progressed the toe began to increase with erythema and the wound began to get somewhat larger. He began noticing increased right lower extremity edema with a cellulitis starting to travel up his leg. He also noticed violaceous skin color along with petechiae developing and decided to be seen. He came into the emergency room and [facility] We have been asked to see him for his toe wound. Allergies Allergy/AdvReac Type Severity Reaction Status Date / Time phenytoin Allergy Intermediate RASH Verified 06/10/18 08:24 Home Medications Medication Instructions Recorded Confirmed Type atorvastatin 40 mg tablet (Lipitor) 40 mg PO DAILY 05/26/18 08/19/21 History metformin 1,000 mg tablet 1,000 mg PO BID 05/26/18 08/19/21 History Patient History Medical History Diabetes Hypertension Pneumonia Surgical History No significant past surgical history Family History Other Diabetes Heart disease Hypertension Seizures Social History Smoking Status: Never smoker Hx Alcohol Use: No Hx Substance Use: No Preferred Language: Spanish Communication Ability: Effective Visual Impairment: Limited Hearing Ability: Normal 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 This is removed. Just looking at his right lower extremity he does have some violaceous skin color with obvious petechiae noted with swelling of the lower portion of the extremity. I am able to palpate this area without causing him much in the way of discomfort. Calf is soft and not overly painful at this time. On examination of the second right toe, he has the violaceous skin color that starts at the right great toe medial aspect travels all the way across the dorsum of the foot at the base of the phalanx ending approximately at the fourth toe. He has an ulceration that has darkened eschar over the whole portion of the wound with no purulent drainage or foul odor. Capillary refill is less than 2 seconds. Patient is able to move his toes. On palpation of the second toe, I cannot express any purulence at this time and he has some mild discomfort. He states that he has a burning sensation where the wound is. This wound does seem to travel down in between the first and second toes but does not wrap around to the plantar aspect. Results & Data ([facility]) Vital Signs (Past 12 Hours) Vital Signs Temp Pulse Resp BP Pulse Ox 08/20/21 12:10 37.0 C 63 20 138/90 95 08/20/21 07:38 37.1 C 57 L 20 146/93 H 98 08/20/21 05:23 36.4 C L 62 18 150/86 H 96 Laboratory Results Laboratory Results WBC 6.74 K/uL (4.8-10.8) 08/20/21 05:28 RBC 4.44 M/uL (4.7-6.1) L 08/20/21 05:28 Hgb 13.4 g/dL (14.0-18.0) L 08/20/21 05:28 Hct 41.5 % (42-52) L 08/20/21 05:28 MCV 93.5 fL (80-100) 08/20/21 05:28 MCH 30.2 pg (25-34) 08/20/21 05:28 MCHC 32.3 g/dL (32-36) 08/20/21 05:28 RDW Std Deviation 47.9 fL (36.4-46.3) H 08/20/21 05:28 RDW Coeff of Scott 14.0 % (11.5-14.5) 08/20/21 05:28 Plt Count 165 K/uL (130-400) 08/20/21 05:28 MPV 10.3 fL (7.4-10.4) 08/20/21 05:28 Immature Gran % (Auto) 0.6 % 08/20/21 05:28 Neut % (Auto) 55.8 % 08/20/21 05:28 Lymph % (Auto) 30.7 % 08/20/21 05:28 [place] % (Auto) 10.4 % 08/20/21 05:28 Eos % (Auto) 2.1 % 08/20/21 05:28 Baso % (Auto) 0.4 % 08/20/21 05:28 Neut # (Auto) 3.76 K/uL (1.4-6.5) 08/20/21 05:28 Lymph # (Auto) 2.07 K/uL (1.2-3.4) 08/20/21 05:28 [place] # (Auto) 0.70 K/uL (0.11-0.59) H 08/20/21 05:28 Eos # (Auto) 0.14 K/uL (0-0.5) 08/20/21 05:28 Baso # (Auto) 0.03 K/uL (0-0.2) 08/20/21 05:28 Immature Gran # (Auto) 0.04 K/uL (0.00-0.02) H 08/20/21 05:28 ESR 29 mm/hr (0-20) H 08/19/21 17:51 PT 10.3 Seconds (9.0-12.0) 08/19/21 17:51 INR 1.0 (0.9-1.1) 08/19/21 17:51 APTT 25.4 Seconds (21.0-31.0) 08/19/21 17:51 PTT Ratio 1.0 08/19/21 17:51 Sodium 137 mmol/L (136-145) D 08/20/21 05:28 Potassium 4.2 mmol/L (3.5-5.1) D 08/20/21 05:28 Chloride 104 mmol/L (98-107) 08/20/21 05:28 Carbon Dioxide 30 mmol/L (21-32) 08/20/21 05:28 Anion Gap 3.0 (3-11) 08/20/21 05:28 BUN 12 mg/dl (7-18) 08/20/21 05:28 Creatinine 0.92 mg/dl (0.6-1.4) D 08/20/21 05:28 Est Cr Clr Drug Dosing 130.5 ml/min 08/20/21 05:28 Est GFR ( Amer) 108.1 ml/min 08/20/21 05:28 Est GFR (Non-Af Amer) 93.3 ml/min 08/20/21 05:28 BUN/Creatinine Ratio 13.3 (10-20) 08/20/21 05:28 Glucose 200 mg/dl (70-99) H 08/20/21 05:28 POC Glucose 176 mg/dl (70-99) H 08/20/21 11:48 Estimat Average Glucose 272 mg/dl 08/20/21 05:28 Hemoglobin A1c 11.1 % (4.5-5.6) H 08/20/21 05:28 Osmolality 296 mOsm/kg (280-300) 08/19/21 17:51 Lactate 1.6 mmol/L (0.4-2.0) 08/20/21 05:28 Calcium 9.4 mg/dl (8.5-10.1) 08/20/21 05:28 Phosphorus 3.5 mg/dl (2.5-4.9) 08/19/21 19:54 Magnesium 2.0 mg/dl (1.8-2.4) 08/19/21 19:54 Total Bilirubin 0.4 mg/dl (0.2-1) 08/19/21 17:51 AST 33 U/L (15-37) 08/19/21 17:51 ALT 49 (12-78) 08/19/21 17:51 Alkaline Phosphatase 91 U/L (45-117) 08/19/21 17:51 Total Creatine Kinase 181 U/L (39-308) 08/19/21 19:54 Troponin I < 0.015 ng/ml (0-0.045) 08/19/21 19:54 C-Reactive Protein 0.83 mg/dl (0-0.29) H 08/19/21 19:54 Total Protein 8.1 gm/dl (6.4-8.2) 08/19/21 17:51 Albumin 4.0 gm/dl (3.4-5.0) 08/19/21 17:51 Globulin 4.1 gm/dl (2.5-4.0) H 08/19/21 17:51 Albumin/Globulin Ratio 1.0 (0.9-2) 08/19/21 17:51 Beta-Hydroxybutyric Acd 1.67 mg/dl (0.2-2.81) 08/19/21 19:54 Procalcitonin 0.18 ng/ml (0-0.5) 08/19/21 17:51 TSH 1.420 uIu/ml (0.300-4.500) 08/19/21 19:54 PTH Intact 59.6 pg/ml (18.4-80.1) 08/20/21 05:28 Specimen Hemolysis 08/19/21 17:51 Urine Color Yellow 08/19/21 21:22 Urine Appearance Clear (Clear) 01/03/22 21:22 Urine pH 5.0 (4.5-7.5) 08/19/21 21:22 Ur Specific [place] 1.013 (1.000-1.030) 08/19/21 21:22 Urine Protein Negative (Negative) 08/19/21 21:22 Urine Glucose (UA) 2+ (Negative) H 08/19/21 21:22 Urine Ketones Negative (Negative) 08/19/21 21: Urine Blood Negative (Negative) 08/19/21 21: Urine Nitrite Negative (Negative) 08/19/21 21:22 Urine Bilirubin Negative (Negative) 08/19/21 21: Urine Urobilinogen Negative (Negative) 08/19/21 21: Ur Leukocyte Esterase Negative (Negative) 08/19/21 21:22 SARS-CoV-2, RNA, NAAT NEGATIVE (NEGATIVE) 08/19/21 Unknown Impressions Chest X-Ray 08/19/21 18:14 XR chest 1V portable HISTORY: SEPSIS COMPARISON: Chest 08/19/2017. FINDINGS: Cardiac silhouette remains mildly enlarged. The lungs are clear. No pleural effusions. No pneumothorax. No evidence for pulmonary edema. IMPRESSION: Mild cardiomegaly, unchanged. No acute process within the chest. ACT 112: Negative or not required by law. Electronically signed by: Venkata Solorio M.D. 08/19/2021 7:30 PM Foot X-Ray 08/19/21 18:14 XR foot RT min 3V routine CLINICAL HISTORY: Right foot infection. Swelling. COMPARISON STUDY: Right foot 02/16/2018. FINDINGS: Mild soft tissue swelling within the right foot. No fracture or dislocation. Mild degenerative changes throughout the right foot. Tiny plantar heel spur. There is a pes planus deformity. Mild vascular calcifications are noted. No soft tissue gas. No radiopaque foreign bodies. No erosive changes. No destructive changes to suggest an osteomyelitis. IMPRESSION: Soft tissue swelling within the right foot, unchanged. No underlying bony destruction to suggest an osteomyelitis. ACT 112: Negative or not required by law. Electronically signed by: Venkata Solorio M.D. 08/19/2021 7:[address] 08/19/21 21:41 CT foot RT wo con CLINICAL HISTORY: Diabetic with foot discolored/blackish. Open wound in the distal metatarsal area. Pain and swelling. COMPARISON STUDY: Standard radiographs from 08/19/2021 CT DOSE: 482.56 mGy.cm TECHNIQUE: Standard CT of the is performed without IV contrast. Multiplanar rec onstruction is performed. A dose lowering technique was utilized adhering to the principles of ALARA. FINDINGS: Bones: There is no definite cortical destruction involving the distal metatarsals or bases of the proximal phalanges. There is no evidence for an acute fracture or dislocation. There are no lytic or blastic lesions. Joints: The joint spaces are maintained. The bones are in anatomic alignment. Soft tissues: There is soft tissue swelling along the dorsum of the foot with infiltration of the subcutaneous fat. The findings are characteristic of cellulitis. There are no focal fluid collections. IMPRESSION: Evidence for cellulitis along the dorsal aspect of the distal foot. No definite CT evidence for osteomyelitis. However, MRI would be the study of choice to evaluate for early osteomyelitis ACT 112: Negative or not required by law. Electronically signed by: Grover Zavala M.D. 08/19/2021 11:[address] 08/19/21 21:41 CT tib/fib RT wo con CLINICAL HISTORY: Diabetic with leg swelling. Discoloration. Evaluate for possible bleeding. COMPARISON STUDY: No previous studies for comparison. CT DOSE: TECHNIQUE: Standard CT of the right lower leg is performed without IV contrast. Multiplanar reconstruction is performed. A dose lowering technique was utilized adhering to the principles of ALARA. FINDINGS: Bones: There is no CT evidence for cortical destruction. There is no evidence for an acute fracture or dislocation. There are no lytic or blastic lesions. Joints: The joint spaces are maintained. The bones are in anatomic alignment. Soft tissues: There is homogeneous attenuation demonstrated within the muscles of the calf. There is evidence for diffuse subcutaneous edema particularly med ially and posteriorly. Extensive varicosities are present. There are no focal fluid collections. There is no increased attenuation to suggest hemorrhage. IMPRESSION: No acute osseous pathology. Diffuse subcutaneous edema characteristic of cellulitis. No increased attenuation is present to suggest hemorrhage. ACT 112: Negative or not required by law. Electronically signed by: Grover Zavala M.D. 08/19/2021 11:05 PM Venous Doppler Study 08/19/21 21:41 US venous doppler LE RT CLINICAL HISTORY: Right lower extremity swelling COMPARISON: None available at the time of this dictation. TECHNIQUE: Right lower extremity real-time compression venous ultrasound with Color Doppler imaging. Utilizing real-time ultrasonic imaging multiple real time high-resolution ultrasonic images with compression and noncompression maneuvers of the deep venous system in addition to color doppler imaging were performed from the common femoral vein through the proximal calf veins. FINDINGS: Currently there is normal compressibility of the deep venous system from the common femoral vein through the proximal calf veins. No current evidence of acute thrombosis is identified. Diffuse subcutaneous edema is present. Impression: No evidence of deep venous thrombus. ACT 112: Negative or not required by law. Electronically signed by: Grover Zavala M.D. 08/19/2021 11:07 PM Foot MRI 08/20/21 23:53 MR foot RT wo/w con CLINICAL HISTORY: R foot swelling ro osteomyelitis [right foot between the first and second toes. TECHNIQUE: Multiplanar multisequence MR images of the right foot were obtained. Comparison: None available at the time of this dictation. FINDINGS: Bones: No evidence of abnormal enhancement or bony edema to suggest osteomyelitis. Tendons: Unremarkable Soft tissue: There is diffuse soft tissue edema and enhancement in the forefoot. No drainable fluid collection is seen. IMPRESSION: Soft tissue swelling without drainable fluid collection or evidence of underlying osteomyelitis. ACT 112: Negative or not required by law. Electronically signed by: Sj Yarbrough M.D. 08/20/2021 7:55 AM (1) Diabetic foot ulcer Diabetes mellitus type: other specified (including RIKKI) Diabetic foot ulcer location: toe Laterality: right Non-pressure ulcer stage: unspecified non- pressure ulcer stage Qualified Code(s): E13.621 - Other specified diabetes mellitus with foot ulcer; L97.519 - Non-pressure chronic ulcer of other part of right foot with unspecified severity
--- NOTE | 2021-08-20 14:38 | Hospitalist Progress Note ---
Date of Service August 20, 2021 Assessment & Plan (1) Asymptomatic hypertensive urgency: Plan: Right Lower Extremity Cellulitis/Diabetic Foot Wound Possible Sepsis R/O bacteremia Denies any H/O trauma --MRI:Soft tissue swelling without drainable fluid collection or evidence of underlying osteomyelitis. --Venous Doppler:No evidence of deep venous thrombus. Lactic acid levels normalized with IV fluids -1/2 blood cultures growing gram-positive cocci in chains Repeat blood cultures pending Continue daptomycin, cefepime for now Appreciate orthopedics input Continue wound care H/O PE/DVT status post anticoagulation Hypertension urgency Noncompliance secondary to insurance issues Started on amlodipine Blood pressure better Acute kidney injury Renal function improved with IV fluids Monitor renal function Hypercalcemia Normalized with IV fluids Monitor DM II Noncompliance due to insurance issues as per patient Currently not on any medications for last 1 year HbA1C 11.1 Monitor blood glucose levels Continue insulin therapy Consider glycemic pharmacist television agent DVT prophylaxis: Heparin sq CODE STATUS Full code Admission and Anticipated Discharge Date Admission Date: August 19, 2021 Subjective Patient is seen and examined at bedside Denies any pain of the foot wound Also denies any chest pain, shortness of breath, dizziness, nausea, abdominal pain Discussed with orthopedics. Offers no other complaints Review of Systems Review of Systems: All systems reviewed & are unremarkable except as noted in Subjective Physical Exam Physical Exam: Physical Exam: Vitals signs as noted above General Appearance:Morbidly Obese, no apparent distress Head: normocephalic, Atraumatic Eyes: normal inspection, EOMI Neck: supple, Trachea midline Respiratory/Chest: Normal breath sounds, CTA Cardiovascular: S1, S2, No murmur Abdomen/GI:Soft, Non tender, Bowel sounds present Extremities/Musculoskeletal:normal inspection, RLE erythema, dorsal foot wound Neurologic/Psych:AAOX3, grossly no focal neurological deficits Skin: normal color, warm Results & Data Results & Data ([facility]) Vital Signs (Past 12 Hours) Vital Signs Temp Pulse Resp BP Pulse Ox 08/20/21 12:10 37.0 C 63 20 138/90 95 08/20/21 07:38 37.1 C 57 L 20 146/93 H 98 08/20/21 05:23 36.4 C L 62 18 150/86 H 96 Laboratory Results Short CBC 08/19/21 08/20/21 Range/Units 17:51 05:28 WBC 11.48 H 6.74 (4.8-10.8) K/uL Hgb 15.5 13.4 L (14.0-18.0) g/dL Hct 46.1 41.5 L (42-52) % Plt Count 206 165 (130-400) K/uL BMP 08/19/21 08/20/21 17:51 05:28 Sodium 130 L 137 D Potassium 5.1 4.2 D Chloride 95 L 104 Carbon Dioxide 27 30 BUN 19 H 12 Creatinine 1.55 H 0.92 D Glucose 277 H 200 H Calcium 11.0 H 9.4 Cardiac Enzymes 08/19/21 Range/Units 19:54 Total Creatine Kinase 181 (39-308) U/L Troponin I < 0.015 (0-0.045) ng/ml Liver Function 08/19/21 Range/Units 17:51 Total Bilirubin 0.4 (0.2-1) mg/dl AST 33 (15-37) U/L ALT 49 (12-78) Alkaline Phosphatase 91 (45-117) U/L Albumin 4.0 (3.4-5.0) gm/dl Urine 08/19/21 Range/Units 21:22 Urine Color Yellow Urine Appearance Clear (Clear) Urine pH 5.0 (4.5-7.5) Ur Specific [place] 1.013 (1.000-1.030) Urine Protein Negative (Negative) Urine Glucose (UA) 2+ H (Negative)
--- NOTE | 2021-08-20 15:15 | Pharmacy Report ---
Pharmacy Glycemic Short Note 2 - Date of Service August 20, 2021 - Glycemic Short BSG Results (Last 24 hours): 08/19/21 08/19/21 08/20/21 17:51 23:12 05:28 Glucose 277 H 200 H POC Glucose 183 H 08/20/21 08/20/21 07:31 11:48 Glucose POC Glucose 182 H 176 H OUTPATIENT ANTIDIABETIC REGIMEN: * metformin 1gm PO BID * A1c = 11.1% 08/20/21 ASSESSMENT: * Poorly controlled type 2 diabetic admitted for hypertensive urgency and RLE cellulitis/diabetic foot infection * Patient has had difficulty with medication compliance due to insurance issues * Fasting BSG 182 this AM w/ 10 units Lantus on board, will continue to uptitrate basal dose. Will use adj BW and "mild" stress given observed insulin sensitivity thus far * Will increase Novolog doses, doses will be based upon adj BW and "moderate" st ress level PLAN FOR INPATIENT GLYCEMIC CONTROL: * Hold outpatient oral diabetes medications (metformin) * Basal insulin * Lantus 20 units SQ HS * Bolus insulin * NovoLog per scale ACHS or Q6hrs while NPO * Goal Range: Low 110 mg/dL - High 140 mg/dL * Correction Factor: 25 mg/dL/unit * Nutritional / Prandial insulin per carb ratio of 1 unit per 8 grams CHO consumed PLAN FOR DISCHARGE: * A1c = 11.1%, this is elevated above goal. Given patient's foot infection and cellulitis leading to hospitalization we should strive for better control on discharge. Discharge options will ultimately depend on insurance coverage / cost. Will need to work with case management and online advertising analyst to determine best course of action.
[2021-08-20] MEDS: amLODIPine BESYLATE 5 MG TAB PO SCH (20:48)
[2021-08-20] MEDS: INSULIN GLARGINE SOLOSTAR 100 UNITS/ML 3 ML PEN SC SCH (20:49)
[2021-08-20] MEDS ORDERED: amLODIPine BESYLATE 5 MG TAB PO SCH (21:00)
[2021-08-20] MEDS ORDERED: INSULIN GLARGINE SOLOSTAR 100 UNITS/ML 3 ML PEN SC SCH ×2 (21:00)
[2021-08-21] MEDS: DAPTOmycin 600 MG in SYRINGE 0 ML IV SCH (01:46)
[2021-08-21] MEDS: CEFEPIME 2,000 MG in SYRINGE 0 ML IV SCH ×3 (04:10→19:33)
[2021-08-21 06:47] LABS: Hematocrit (blood only) 42.9 % (42-52); Hemoglobin 13.8 g/dL (14.0-18.0); Mean Corpuscular Hemoglobin 30.5 pg (25-34); Mean Corpuscular Hgb Conc 32.2 g/dL (32-36); Mean Corpuscular Volume 94.9 fL (80-100); Mean Platelet Volume 10.1 fL (7.4-10.4); Platelet Count 169 K/uL (130-400); RDW Coefficient of Variation 14.2 % (11.5-14.5); RDW Standard Deviation 49.5 fL (36.4-46.3); Red Blood Count 4.52 M/uL (4.7-6.1); White Blood Count 7.17 K/uL (4.8-10.8)
[2021-08-21 07:15] LABS: BUN Creatinine Ratio 14.9 (10-20); Calcium 9.6 mg/dl (8.5-10.1); Creatinine Clr Calc Pharmacy 155.8 ml/min; Est GFR (African American) 118.4 ml/min; Est GFR (Non-African American) 102.2 ml/min; Magnesium 2.3 mg/dl (1.8-2.4)
[2021-08-21] MEDS: ENOXAPARIN INJ 40 MG/0.4 ML SYR SQ SCH (08:44)
[2021-08-21] MEDS: INSULIN ASPART PER UNIT SC SCH ×4 (08:47→21:00)
--- NOTE | 2021-08-21 10:29 | Hospitalist Progress Note ---
Date of Service August 21, 2021 Assessment & Plan (1) Diabetic foot ulcer: (2) Poorly controlled diabetes mellitus: (3) Asymptomatic hypertensive urgency: Plan: Right Lower Extremity Cellulitis/Diabetic Foot Wound Possible Sepsis R/O bacteremia vs contaminant --MRI:Soft tissue swelling without drainable fluid collection or evidence of underlying osteomyelitis. --Venous Doppler:No evidence of deep venous thrombus. Lactic acid levels normalized with IV fluids -1/2 blood cultures growing alpha strep not s pneumo/entero. Possibly contaminant Continue daptomycin, cefepime for now while awaiting pending repeat cultures from yesterday Orthopedics input noted. Patient to follow-up with Dr. Alvares in 2 weeks Continue wound care DM II Poorly controlled Noncompliance due to insurance issues as per patient Currently not on any medications for last 1 year HbA1C 11.1 Continue insulin therapy Provided basic diabetes education certified diabetes educator evaluation noted. Patient will need at least the basal insulin therapy with Metformin on discharge. To mitigate prohibitive cost, will discuss with pharmacy most cost effective regimen as patient still in the process of getting some insurance or insurance assistance Hypertension urgency Noncompliance secondary to insurance issues Continue amlodipine Monitor Acute kidney injury Resolved with IV fluids Hyponatremia on admission resolved Hypercalcemia Normalized with IV fluids Monitor H/O PE/DVT status post anticoagulation DVT prophylaxis: Heparin sq CODE STATUS Full code Possible discharge in 1 to 2 days. Continue wound care. cad manager to provide patient with resources for assistance with medication other social issues that patient would like to discuss with case filler about. We will need to follow-up with wound care clinic. We will need to follow-up with PCP Admission and Anticipated Discharge Date Admission Date: August 19, 2021 Subjective 56-year-old man with history of hypertension, hyperlipidemia, DM type II on Metformin PE/DVT status post anticoagulation, medication nonadherence due to insurance problems who presented with worsening right foot wound. Being managed for right diabetic foot wound, poorly controlled diabetes and hypertension. Patient seen and examined today. Denies any pain in the foot. Denies numbness, paresthesia. Denies Chills, nausea, vomiting Denies abdominal pain, diarrhea Denies any cough, chest pain, shortness of breath Physical Exam Constitutional: + well hydrated and + obese; no acute distress Eyes: PERRL, conjunctivae normal, anicteric sclerae ENMT: external ear and nose normal, oropharynx normal Respiratory: normal respiratory effort, lungs clear to auscultation Cardiovascular: Rate/Rhythm: regular rate and regular rhythm S1-S2 Gastrointestinal (Abdomen): normal bowel sounds, soft, nontender, no hepatosplenomegaly Musculoskeletal: Right lower extremity erythema, dorsal foot wound. [See pictures] Neurologic: PERRL, EOMI, accommodation nl, no face palsy, no dysarthria Psychiatric: A+Ox3, euthymic affect Results & Data Results & Data ([facility]) Vital Signs (Past 12 Hours) Vital Signs Temp Pulse Pulse Resp BP Pulse Ox 08/21/21 07:57 36.4 C L 57 L 20 158/92 H 95 08/20/21 23:31 36.9 C 60 16 136/82 95 Laboratory Results Abnormal lab results 08/20/21 08/20/21 08/20/21 Range/Units 11:48 16:25 20:39 RBC (4.7-6.1) M/uL Hgb (14.0-18.0) g/dL RDW Std Deviation (36.4-46.3) fL Glucose (70-99) mg/dl POC Glucose 176 H 133 H 135 H (70-99) mg/dl 08/21/21 08/21/21 08/21/21 Range/Units 06:36 06:36 07:19 RBC 4.52 L (4.7-6.1) M/uL Hgb 13.8 L (14.0-18.0) g/dL RDW Std Deviation 49.5 H (36.4-46.3) fL Glucose 154 H (70-99) mg/dl POC Glucose 154 H (70-99) mg/dl (1) Diabetic foot ulcer Diabetes mellitus type: other specified (including RIKKI) Diabetic foot ulcer location: toe Laterality: right Non-pressure ulcer stage: unspecified non- pressure ulcer stage Qualified Code(s): E13.621 - Other specified diabetes mellitus with foot ulcer; L97.519 - Non-pressure chronic ulcer of other part of right foot with unspecified severity
--- NOTE | 2021-08-21 11:39 | Pharmacy Report ---
Pharmacy Glycemic Short Note 2 - Date of Service August 21, 2021 - Glycemic Short BSG Results (Last 24 hours): 08/20/21 08/20/21 08/20/21 11:48 16:25 20:39 Glucose POC Glucose 176 H 133 H 135 H 08/21/21 08/21/21 08/21/21 06:36 07:19 11:04 Glucose 154 H POC Glucose 154 H 170 H OUTPATIENT ANTIDIABETIC REGIMEN: * metformin 1gm PO BID * A1c = 11.1% 08/20/21 ASSESSMENT: 08/21 * BSGs well controlled/improved over the last 24 hours * Fasting BSG 154 this AM w/ 25 units basal on board. Anticipate further improvement w/ repeat dosing * Post-prandial BSGs controlled yesterday w/ Novolog carb coverage 08/20 * Poorly controlled type 2 diabetic admitted for hypertensive urgency and RLE cellulitis/diabetic foot infection * Patient has had difficulty with medication compliance due to insurance issues * Fasting BSG 182 this AM w/ 10 units Lantus on board, will continue to uptitrate basal dose. Will use adj BW and "mild" stress given observed insulin sensitivity thus far * Will increase Novolog doses, doses will be based upon adj BW and "moderate" stress level PLAN FOR INPATIENT GLYCEMIC CONTROL: * Hold outpatient oral diabetes medications (metformin) * Basal insulin - no change * Lantus 20 units SQ HS * Bolus insulin - no change * NovoLog per scale ACHS or Q6hrs while NPO * Goal Range: Low 110 mg/dL - High 140 mg/dL * Correction Factor: 25 mg/dL/unit * Nutritional / Prandial insulin per carb ratio of 1 unit per 8 grams CHO consumed PLAN FOR DISCHARGE: * A1c = 11.1%, this is elevated above goal. Given patient's foot infection and cellulitis leading to hospitalization we should strive for better control on discharge. Discharge options will ultimately depend on insurance coverage / cost. Will need to work with case management and natural resources extension educator to determine best course of action. * One option may be to use Relion 70/30 insulin on discharge: 24 units w/ breakfast + 12 units w/ evening meal; along with metformin 500mg BID initially.
[2021-08-21] MEDS: amLODIPine BESYLATE 5 MG TAB PO SCH (20:59)
[2021-08-21] MEDS: INSULIN GLARGINE SOLOSTAR 100 UNITS/ML 3 ML PEN SC SCH (21:00)
[2021-08-22] MEDS: DAPTOmycin 600 MG in SYRINGE 0 ML IV SCH (01:58)
[2021-08-22] MEDS: CEFEPIME 2,000 MG in SYRINGE 0 ML IV SCH ×3 (04:20→20:50)
[2021-08-22 07:28] LABS: Hematocrit (blood only) 44.3 % (42-52); Hemoglobin 14.3 g/dL (14.0-18.0); Mean Corpuscular Hemoglobin 30.5 pg (25-34); Mean Corpuscular Hgb Conc 32.3 g/dL (32-36); Mean Corpuscular Volume 94.5 fL (80-100); Mean Platelet Volume 10.4 fL (7.4-10.4); Platelet Count 179 K/uL (130-400); RDW Coefficient of Variation 14.2 % (11.5-14.5); RDW Standard Deviation 48.8 fL (36.4-46.3); Red Blood Count 4.69 M/uL (4.7-6.1); White Blood Count 6.27 K/uL (4.8-10.8)
[2021-08-22 07:57] LABS: BUN Creatinine Ratio 14.9 (10-20); Calcium 9.7 mg/dl (8.5-10.1); Creatinine Clr Calc Pharmacy 151.9 ml/min; Est GFR (African American) 117.2 ml/min; Est GFR (Non-African American) 101.1 ml/min; Potassium 3.8 mmol/L (3.5-5.1)
[2021-08-22] MEDS: ENOXAPARIN INJ 40 MG/0.4 ML SYR SQ SCH (08:07)
[2021-08-22] MEDS: INSULIN ASPART PER UNIT SC SCH ×4 (09:05→21:11)
--- NOTE | 2021-08-22 09:39 | Pharmacy Report ---
Pharmacy Glycemic Short Note 2 - Date of Service August 22, 2021 - Glycemic Short BSG Results (Last 24 hours): 08/21/21 08/21/21 08/21/21 11:04 15:39 20:20 Glucose POC Glucose 170 H 123 H 130 H 08/22/21 08/22/21 07:06 08:02 Glucose 160 H POC Glucose 148 H OUTPATIENT ANTIDIABETIC REGIMEN: * metformin 1gm PO BID * A1c = 11.1% 08/20/21 ASSESSMENT: 08/22 * BSG's well controlled on current regimen * Will change Lantus to NPH starting with dinner to help with eventual transition to likely initiation of Relion 70/30 as an outpatient. Anticipate breakfast and dinner dosing ongoing * No change to Novolog at this time 08/21 * BSGs well controlled/improved over the last 24 hours * Fasting BSG 154 this AM w/ 25 units basal on board. Anticipate further improvement w/ repeat dosing * Post-prandial BSGs controlled yesterday w/ Novolog carb coverage 08/20 * Poorly controlled type 2 diabetic admitted for hypertensive urgency and RLE cellulitis/diabetic foot infection * Patient has had difficulty with medication compliance due to insurance issues * Fasting BSG 182 this AM w/ 10 units Lantus on board, will continue to uptitrate basal dose. Will use adj BW and "mild" stress given observed insulin sensitivity thus far * Will increase Novolog doses, doses will be based upon adj BW and "moderate" stress level PLAN FOR INPATIENT GLYCEMIC CONTROL: * Hold outpatient oral diabetes medications (metformin) * Basal insulin * Stop Lantus * Start NPH 15 units with dinner x1 and re-assess tomorrow * Bolus insulin - no change * NovoLog per scale ACHS or Q6hrs while NPO * Goal Range: Low 110 mg/dL - High 140 mg/dL * Correction Factor: 25 mg/dL/unit * Nutritional / Prandial insulin per carb ratio of 1 unit per 8 grams CHO consumed PLAN FOR DISCHARGE: * A1c = 11.1%, this is elevated above goal. Given patient's foot infection and cellulitis leading to hospitalization we should strive for better control on discharge. Discharge options will ultimately depend on insurance coverage / cost. Will need to work with case management and proposal editor to determine best course of action. * One option may be to use Relion 70/30 insulin on discharge: 24 units w/ breakfast + 12 units w/ evening meal; along with metformin 500mg BID initially.
--- NOTE | 2021-08-22 14:11 | Hospitalist Progress Note ---
Date of Service August 22, 2021 Assessment & Plan (1) Diabetic foot ulcer: (2) Poorly controlled diabetes mellitus: (3) Asymptomatic hypertensive urgency: Plan: Right Lower Extremity Cellulitis/Diabetic Foot Wound Possible Sepsis R/O bacteremia vs contaminant --MRI:Soft tissue swelling without drainable fluid collection or evidence of underlying osteomyelitis. --Venous Doppler:No evidence of deep venous thrombus. Lactic acid levels normalized with IV fluids -1/2 blood cultures growing alpha strep not s pneumo/entero. Possibly contaminant Continue daptomycin, cefepime for now while awaiting pending repeat cultures from yesterday Orthopedics input noted. Patient to follow-up with Dr. Alvares in 2 weeks Continue wound care DM II Poorly controlled Noncompliance due to insurance issues as per patient Currently not on any medications for last 1 year HbA1C 11.1 Continue insulin therapy Provided more diabetes education Patient will need insulin therapy with Metformin on discharge. DM educator working on getting patient insulin 70/30. Already provided glucometer and some supplies Hypertension urgency Noncompliance secondary to insurance issues Continue amlodipine Monitor Acute kidney injury Resolved with IV fluids Hyponatremia on admission resolved Hypercalcemia Normalized with IV fluids Monitor H/O PE/DVT status post anticoagulation DVT prophylaxis: Heparin sq CODE STATUS Full code CM working on MA and other assistive resources to aid patient procure meds that he needs Will send meds (metformin, amlodipine) on [employer] $4 list to aid patients as well We will need to follow-up with wound care clinic. Plan for discharge tomorrow Admission and Anticipated Discharge Date Admission Date: August 19, 2021 Subjective 56-year-old man with history of hypertension, hyperlipidemia, DM type II on Metformin PE/DVT status post anticoagulation, medication nonadherence due to insurance problems who presented with worsening right foot wound. Being managed for right diabetic foot wound, poorly controlled diabetes and hypertension. Patient seen and examined today. Denies any pain in the foot. Denies numbness, paresthesia. Denies fever, chills, nausea, vomiting Denies abdominal pain, diarrhea Denies any cough, chest pain, shortness of breath Physical Exam Constitutional: + well hydrated and + obese; no acute distress Eyes: PERRL, conjunctivae normal, anicteric sclerae ENMT: external ear and nose normal, oropharynx normal Respiratory: normal respiratory effort, lungs clear to auscultation Cardiovascular: Rate/Rhythm: regular rate and regular rhythm S1 S2 Gastrointestinal (Abdomen): normal bowel sounds, soft, nontender, no hepatosplenomegaly Musculoskeletal: Right lower extremity erythema, dorsal foot wound, no purulent drainage Neurologic: PERRL, EOMI, accommodation nl, no face palsy, no dysarthria Psychiatric: A+Ox3, euthymic affect Results & Data Results & Data ([facility]) Vital Signs (Past 12 Hours) Vital Signs Temp Pulse Resp BP Pulse Ox 08/22/21 07:02 36.7 C 55 L 16 160/95 H 95 Laboratory Results Abnormal lab results 08/21/21 08/22/21 08/22/21 Range/Units 20:20 07:06 07:06 RBC 4.69 L (4.7-6.1) M/uL RDW Std Deviation 48.8 H (36.4-46.3) fL Sodium 135 L (136-145) mmol/L Glucose 160 H (70-99) mg/dl POC Glucose 130 H (70-99) mg/dl 08/22/21 08/22/21 Range/Units 08:02 12:03 RBC (4.7-6.1) M/uL RDW Std Deviation (36.4-46.3) fL Sodium (136-145) mmol/L Glucose (70-99) mg/dl POC Glucose 148 H 152 H (70-99) mg/dl (1) Diabetic foot ulcer Diabetes mellitus type: other specified (including RIKKI) Diabetic foot ulcer location: toe Laterality: right Non-pressure ulcer stage: unspecified non- pressure ulcer stage Qualified Code(s): E13.621 - Other specified diabetes mellitus with foot ulcer; L97.519 - Non-pressure chronic ulcer of other part of right foot with unspecified severity
[2021-08-22] MEDS ORDERED: INSULIN HUMAN NPH SC SCH (16:30)
[2021-08-22] MEDS: amLODIPine BESYLATE 5 MG TAB PO SCH (20:51)
[2021-08-23] MEDS: DAPTOmycin 600 MG in SYRINGE 0 ML IV SCH (01:35)
[2021-08-23] MEDS: CEFEPIME 2,000 MG in SYRINGE 0 ML IV SCH ×2 (05:27→13:02)
[2021-08-23 07:04] VITALS: TEMP 98.4; O2SAT 94
[2021-08-23] MEDS ORDERED: INSULIN HUMAN 70% NPH/30% REGULAR SC SCH ×2 (07:30→16:30)
[2021-08-23] MEDS ORDERED: LISINOPRIL/HCTZ 20/12.5MG 1 TAB TAB PO SCH ×2 (08:07→08:30)
[2021-08-23] MEDS: INSULIN ASPART PER UNIT SC SCH ×2 (08:43→12:56)
[2021-08-23] MEDS: ENOXAPARIN INJ 40 MG/0.4 ML SYR SQ SCH (08:45)
--- NOTE | 2021-08-23 09:36 | Pharmacy Report ---
Pharmacy Glycemic Short Note 2 - Date of Service August 23, 2021 - Glycemic Short BSG Results (Last 24 hours): 08/22/21 08/22/21 08/22/21 12:03 17:04 20:25 POC Glucose 152 H 126 H 158 H 08/23/21 08:11 POC Glucose 134 H OUTPATIENT ANTIDIABETIC REGIMEN: * metformin 1gm PO BID * A1c = 11.1% 08/20/21 ASSESSMENT: 08/23 * BSG's well controlled on current regimen * Will transition to possible home dose of 70/30, starting this AM. Will essentially eliminate Novolog CHO ratio (but keep as a VERY high number not so insulin is provided, but so CHO are counted) * Per Corrie Granger, patient is applying for medical assistance but this will be delayed. Transition to 70/30 as in inpatient will also allow for a small home supply to get the patient though 08/22 * BSG's well controlled on current regimen * Will change Lantus to NPH starting with dinner to help with eventual transition to likely initiation of Relion 70/30 as an outpatient. Anticipate breakfast and dinner dosing ongoing * No change to Novolog at this time 08/21 * BSGs well controlled/improved over the last 24 hours * Fasting BSG 154 this AM w/ 25 units basal on board. Anticipate further improvement w/ repeat dosing * Post-prandial BSGs controlled yesterday w/ Novolog carb coverage 08/20 * Poorly controlled type 2 diabetic admitted for hypertensive urgency and RLE cellulitis/diabetic foot infection * Patient has had difficulty with medication compliance due to insurance issues * Fasting BSG 182 this AM w/ 10 units Lantus on board, will continue to uptitrate basal dose. Will use adj BW and "mild" stress given observed insulin sensitivity thus far * Will increase Novolog doses, doses will be based upon adj BW and "moderate" stress level PLAN FOR INPATIENT GLYCEMIC CONTROL: * Resume home metformin (anticipate discharge possible today or tomorrow) * Basal insulin/prandial insulin - Novolin 70/30 * Stop Lantus * Start Novolin 70/30, 24 units with breakfast and 12 units with dinner * Correctional insulin - Novolog * NovoLog per scale ACHS or Q6hrs while NPO * Goal Range: Low 110 mg/dL - High 140 mg/dL * Correction Factor: 25 mg/dL/unit * Carb ratio: 50 g CHO/unit PLAN FOR DISCHARGE: * A1c = 11.1%, this is elevated above goal. Given patient's foot infection and cellulitis leading to hospitalization we should strive for better control on discharge. Discharge options will ultimately depend on insurance coverage / cost. Medical assistance pending. Relion 70/30 is the eventual plan, but this will be delayed from discharge. Novolin 70/30 vial (started as an inpatient) should be sent home with the patient * Relion 70/30 insulin on discharge: 24 units w/ breakfast + 12 units w/ dinner; along with metformin 500mg with breakfast and dinner (initially).
[2021-08-23] MEDS ORDERED: metFORMIN HCL 500 MG TAB PO SCH (09:45)
--- NOTE | 2021-08-23 13:04 | Discharge Summary ---
Date of Service August 23, 2021 Admission HPI Per Admitting Provider History obtained from patient and records. Medical history significant for hypertension, hyperlipidemia, DM2 on oral meds, history of PE DVT status post anticoagulation, medication noncompliance. Last confinement 2017 for flulike symptoms and RLE cellulitis. Patient stopped taking his medications and has not seen his [facility] PCP the last few years secondary to financial constraints. Patient taking natural p roducts and exercising a lot to lose a lot of weight. 3 weeks ago patient noted a wound on the right foot. No recollection of trauma. Wound worsening despite rest at home. No fever, no chills. Patient noted extension of right foot wound to the leg with some bruising. Patient denies chest pain, S OB, headache symptoms. Patient received vancomycin and Zosyn at the ER. Medical History as above Surgical History : None Family History : DM, alcoholism, heart disease, parkinsonism Personal/Social history : Non-smoker, no EtOH intake, fast food restaurant employee Admission Exam Per Admitting Provider GENERAL: Comfortable, anxious, morbidly obese, no respiratory distress SKIN: Normal color, warm HEENT: Bespectacled, partial alopecia, [place] palpebral conjunctivae, no ptosis, dry buccal mucosa NECK : Supple, short neck, no tenderness CHEST : CTA, no tenderness HEART : RRR, no obvious murmurs ABDOMEN: Some distention, nontender EXTREMITIES : violaceous necrotic ulcerated wound right foot dorsum, RLE swelling with tenderness with overlying petechial lesions NEUROLOGIC : Coherent, no facial asymmetry, no other gross focality Principal Diagnosis Diabetic foot wound Hypertensive urgency Poorly controlled diabetes Discharge Exam Gen: WD/WN, NAD, lying in bed, obese, A&Ox3 HEENT: Normocephalic, atraumatic, conjunctivae moist, sclerae anicteric, mucous membranes moist Lung: Clear to Auscultation bilaterally, no wheezes/rales/rhonchi Heart: Regular rate, regular rhythm, no murmurs, rubs, or gallops Abdomen: Soft, NT, ND +BS x 4 Extremities: Right lower extremity erythema, dorsal foot wound, no purulent drainage, no edema Skin: Warm, no rash Discharge Data Allergies Allergy/AdvReac Type Severity Reaction Status Date / Time phenytoin Allergy Intermediate RASH Verified 06/10/18 08:24 Consultations 08/19/21 21:50 Consult Orthopedic Surgery Routine Ordered Studies 08/19/21 21:41 CT foot RT wo con Urgent CT tib/fib RT wo con Urgent US venous doppler LE RT Urgent 08/20/21 23:53 MR foot RT wo/w con Routine Hospital Course (1) Diabetic foot ulcer: (2) Cellulitis of right foot: (3) Poorly controlled diabetes mellitus: (4) Asymptomatic hypertensive urgency: This is a 56yo M with a PMH of hypertension, hyperlipidemia, DM2 on oral meds, history of PE DVT status post anticoagulation, medication noncompliance who presents with R diabetic foot wound/cellulitis. Foot MRI with soft tissue swelling without drainable fluid collection or evidence of underlying osteomy elitis. No evidence of DVT on venous dopplers. Initially started on IV Daptomycin and Cefepime and was transitioned to Augmentin and doxycycline upon discharge to complete antibiotic course. Was also started on insulin 70/30 during admission for poorly controlled DM II. Met with senior health educator. Will be discharged on lisinopril-HCTZ for hypertension. Has wound care follow up and primary care follow up at [facility] on Thursday. CM set up MA during admission as well as other assistive resources as patient does not have insurance and reports not able to afford meds. Hemodynamically stable at time of discharge. Total Time Total Time Spent Total Time Spent (In Minutes): 40 Discharge Plan Discharge Items Patient Disposition: Home - Self-Care Reason For Visit: Foot wound Discharge Diagnosis: Diabetic foot wound Hypertensive urgency Poorly controlled diabetes Activity: Resume your previous activity Non-emergency contact: Primary Care Provider Call non-emergency contact if: you have any medication questions and your symptoms worsen Follow-up/Referrals: [facility] [Other] - 09/14/21 1:00 pm ([address], [address] [place] [address] ) Kathia Denson DO [Outside Practitioners] - (Date & Time 08/27/2021 2:20 PM Kathia Denson DO [address] [address] ) Diet: Carb Consistent or DM2 and Heart Healthy Addtl Attending Provider Instructions: Mr Pineda You came to the hospital for worsening right foot wound. You were evaluated and found to have diabetic foot wound/cellulitis, poorly controlled diabetes and hypertension. You were started on insulin and blood pressure medications. You are being discharged on lisinopril-HCTZ for hypertension, insulin and metformin for your diabetes and 3 more days of antibiotics (Augmentin and doxycycline) for your wound. It is very important you take these medications as prescribed. Take the insulin 70/30, 24 units with breakfast and 12 units with dinner as instructed. Please monitor your blood glucose as instructed Please ensure follow up with wound clinic and Primary Care Doctor for continued treatment. Please ensure follow up with appointment at [facility] on Thursday. It was a pleasure taking care of you. Pending Studies at Discharge: No Stand-Alone Forms: My [facility] [employer], Work/School Release, Smoking Cessation Medications and DC Order Prescriptions: New lisinopril-hydrochlorothiazide 20-12.5 mg Tablet 1 tab PO QAM Qty: 30 RF: 0 Novolin 70/30 U-100 Insulin 100 unit/mL (70-30) Suspension 12 unit SC QDD Qty: 10 RF: 0 Novolin 70/30 U-100 Insulin 100 unit/mL (70-30) Suspension 24 unit SC QDB Qty: 10 RF: 0 amoxicillin-pot clavulanate [Augmentin] 875-125 mg tablet 1 tab PO BID 3 Days Qty: 6 RF: 0 doxycycline hyclate 100 mg tablet 100 mg PO DAILY 3 Days Qty: 3 RF: 0 Continued atorvastatin [Lipitor] 40 mg Tablet 40 mg PO DAILY RF: 0 metformin 1,000 mg Tablet 1,000 mg PO BID Qty: 60 RF: 0 Discharge Orders: Discharge Order (Routine); Ordered 08/23/21 Ordered By: Stacy Guerrero/Other Patient Handouts: Managing Type 2 Diabetes, Healthy Meals for Diabetes Admission Data Admit Date/Time: 08/19/21 21:44 Attending Provider: Stacy Guerra I. Admit Provider: Jorge Connell Primary Care Provider: PCP,NO Other Providers: Piter Rutherford ; Dom Reyes ; Walter Levi ; Anai Barrientos Thomas J ; Neha Meadows ; Shubham Alex ; Thor Alford ; Raj Torre Andrew J. ; Thor Elena ; Johan Gamboa ; Miles Oden ; Clay Franco ; Dimitrios Hernandez ; Neha Augustine ; Solomon Blanco ; Black Barillas ; Yuly Chiu ; Andrew Chapa ; Zahraa Simmons ; Bradly Alvarenga ; Brian Koroma Other Interventions: Discharge Summary Assessment (RN) Last Done: 08/23/21 14:43 Supervising Physician Co-Signing Physician Notes Patient seen and examined Agree with findings and plan as detailed by Monica Gooden PA-C
[2021-08-23 14:46] VITALS: BP 146/79; PULSE 60
--- NOTE | 2021-09-06 09:26 | Coding Query ---
SEPSIS To promote full compliance with coding requirements relating to patient care, physician participation is requested in all cases of asphalt spreader uncertainty. Please assist us with the question(s) below: In responding to this query, please exercise your independent professional judgement. The fact that a question is asked does not imply that any particular answer is desired or expected. We appreciate your clarification on this issue. Throughout the medical record, you have clearly documented a localized infection and your patient has clinical evidence of a generalized sepsis or severe sepsis. The term urosepsis is a nonspecific entity and is coded as an UTI. If the patient has sepsis, severe sepsis, from an urinary source or some other source, please clarify in your response below. The medical record reflects the following clinical findings: DM patient admitted with cellulitis foot, DM toe ulcer. 08/21, 08/22 progress notes mentioned Sepsis . WBC elevated on admission.. trending down to 6 at discharge. One Blood Culture positive. Remaining 3 cultures negative. Seeking to determine if Sepsis was treated during this Inpatient Stay. Please check the appropriate response below. Thank you . Alejo Venegas [facility] ____ ( )Bacteremia (Nonspecific laboratory finding of bacteria in the blood) Specify Organism ( ) Present on Admission ( ) Not present on admission ( ) Unable to clinically determine ( ) Septicemia (Systemic disease associated with the presence of pathogenic microorganisms in the blood): Specify Organism () Present on Admission () Not present on admission () Unable to clinically determine ( ) Sepsis Specify Organism Specify Associated Condition/Diagnosis ( ) Present on Admission ( ) Not present on admission ( ) Unable to clinically determine ( ) Severe Sepsis (Sepsis associated with acute organ dysfunction) Specify Organism Specify Associated Condition/Diagnosis ( ) Present on Admission ( ) Not present on admission ( ) Unable to clinically determine ( ) Septic Shock (Severe sepsis with acute circulatory failure, unexplained by other causes) ( ) Present on Admission ( ) Not present on admission ( ) Unable to clinically determine (x ) Other, patient has: Patient did not meet SIRS criteria for sepsis. Did not have leukocytosis for SIR criteria. 1 blood culture was positive out of 4, deemed contaminant MTDD
== END 2021-08-23 15:36 | disposition home or self-care (01) | DRG 638 ==
LOC: ED 17:34 → SUATTDRO 21:44 → EDINP 21:44 → 2N 23:53 → 3N 08-21 23:16